=== PATIENT | male | born 1960 | race Caucasian/White ===

== ENCOUNTER 2020-08-03 09:49 | Outpatient (REF) | payer SELFPAY ==
[2020-08-03 10:29] LABS: Estimated Average Glucose 105 mg/dL; Hemoglobin A1c % 5.3 %
[2020-08-03 10:54] LABS: Alanine Aminotransferase 91 U/L (0-40); Albumin Level 4.2 g/dL (3.5-5.0); Alkaline Phosphatase 69 U/L (39-117); Anion Gap 10 (12-20); Aspartate Amino Transferase 54 U/L (5-37); Bilirubin Total 2.1 mg/dL (0.0-1.0); Blood Urea Nitrogen 20 mg/dL (9-16); Calcium 8.5 mg/dL (8.4-10.2); Carbon Dioxide 28 mmol/L (22-29); Chloride 108 mmol/L (96-108); Estimated Glomerular Filt Rate > 60; Glucose Fasting 102 mg/dL (60-99); HDL Cholesterol 33 mg/dL; Potassium 4.4 mmol/l (3.3-5.1); Sodium 142 mmol/L (135-145); Triglycerides 47 mg/dL
[2020-08-03 11:04] LABS: TSH reflex Free T4 2.24 mIU/mL (0.32-4.0)
[2020-08-03 11:24] LABS: Creatinine Urine 72.89 mg/dL; Microalbumin Urine < 5.0 mg/L
[2020-08-03 11:31] LABS: Cholesterol 79 mg/dL; LDL Cholesterol Calculated 37 mg/dl
== END 2020-08-03 09:50 | disposition home or self-care (01) ==
LOC: HO.LAB 09:49
PROVIDERS: PCP Physician Assistant; Visit Provider Physician Assistant
DX: I10 Essential (primary) hypertension (principal); E78.2 Mixed hyperlipidemia; E03.9 Hypothyroidism, unspecified; Z12.5 Encounter for screening for malignant neoplasm of prostate
CPT/HCPCS: 36415; 80053; 80061; 82043; 83036; 84153; 84443

== ENCOUNTER → 2020-08-19 12:14 | Outpatient (BNVA) | payer OTHER, SELFPAY | PROVIDERS: PCP Physician Assistant; Visit Provider Physician Assistant ==

== ENCOUNTER 2020-10-19 09:47 | Day surgery (SDC) | payer OTHER, SELFPAY ==
--- NOTE | 2020-10-18 11:01 | HO.ANESPROP2 ---
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 Mother No problems noted. Daughter Lupus Surgical History Surgical History Hx of colonoscopy No pertinent past surgical history Social History Social History Household Members: Spouse Alcohol intake: never Smoking Status: Never smoker Advance Directives: No Advance Directives Information Provided: No Advance Directives on File: No Current occupational status: employed Current occupation: [employer] Allergies Allergy/AdvReac Type Severity Reaction Status Date / Time No Known Allergies Allergy Verified 07/21/20 13:42 Home Medications Medication Instructions Recorded Confirmed Last Taken Type apixaban 5 mg tablet 5 mg PO BID 07/21/20 10/13/20 Unknown History Exam Exam Date and Time: October 18, 2020 1101 Pertinent Lab Results Pertinent Lab Results: Laboratory Tests 07/03/19 08/03/20 15:05 10:00 WBC 4.8 Hgb 15.7 Hct 45.7 Plt Count 178 Sodium 142 Potassium 4.4 Chloride 108 Carbon Dioxide 28 BUN 20 H Creatinine 1.12 Assessment and Plan Assessment Anesthesia Assessment: Chart Reviewed Documented by User: Lay Darby 10/19/20 10:45 [facility] Past Medical History Medical History Acquired hyperbilirubinemia Arthritis of knee H/O ischemic right MCA stroke Hand arthritis HTN (hypertension) Hyperlipidemia Hypothyroidism correction current use of anticoagulant Family History Family History Father No problems noted. Mother No problems noted. Daughter Lupus Surgical History Surgical History Hx of colonoscopy No pertinent past surgical history Social History Social History Household Members: Spouse Alcohol intake: never Smoking Status: Never smoker Advance Directives: No Advance Directives Information Provided: No Advance Directives on File: No Current occupational status: employed Current occupation: [employer] Meds Allergies Allergy/AdvReac Type Severity Reaction Status Date / Time No Known Allergies Allergy Verified 07/21/20 13:42 Home Medications Medication Instructions Recorded Confirmed Last Taken Type apixaban 5 mg tablet 5 mg PO BID 07/21/20 10/13/20 Unknown History Exam Airway Mallampati Class: II TM Dist: >3cm Neck ROM: Full Denture: Upper Loose/Missing/Broken Teeth: Yes Heart: RRR Lungs: CTA Assessment and Plan Assessment Anesthesia Assessment: Anesthesia Plan Discussed and Chart Reviewed Final Anesthetic Review NPO: Yes ASA Class: III Final Preanesthetic Review: Meds/Allgs Chart Reviewed, Consent Obtained/Reviewed and Anes Risks/Benef Reviewed Patient Risk: Intermediate Procedure Risk: Low Anesthetic Plan Anesthetic Plan: MAC: Disposition: Standard PACU
[2020-10-19 10:22] VITALS: BP 159/96; PULSE 71; RESP 16; TEMP 36.8; O2SAT 99
--- NOTE | 2020-10-19 10:27 | MHC.SHP ---
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) History of Previous Operations: Relevant previous surgery/procedure and date(s) (colonoscopy) Allergies: Allergies Allergy/AdvReac Type Severity Reaction Status Date / Time No Known Allergies Allergy Verified 07/21/20 13:42 Review of Systems Sugical H&P ROS: Negative: Constitution, Cardiovascular, Respiratory, Neurological, Psychiatric, Hem-Onc, Allergic/Immunologic, Gastrointestinal, Genitourinary, Musculoskeletal, Integumentary, Endocrine and Eyes/Ears/Nose/Throat Exam Surgical H&P Exam: Normal: HEENT, Normal: Heart, Normal: Lungs, Normal: Extremities, Normal: Abdomen, Normal: Skin and Normal: Neurological Plan Diagnosis/Plan: Unchanged I have reviewed the history and physical and performed a pertinent physical examination on my patient. No changes have occurred unless specified.
[2020-10-19 10:28] VITALS: BMI 26.4
[2020-10-19] MEDS: Lactated Ringers 1,000 ML 100 ML IVCONT (10:30)
--- NOTE | 2020-10-19 11:34 | P.OP_ITS ---
Operative Note Operative Note Date of Service: 10/19/20 Narrative: Operative Information Procedure Description: Colonoscopy COLONOSCOPY Instrument: Olympus variable stiffness pediatric scope 190L Colonoscopy Monitoring: Vital signs and clinical assessment, continuous EKG monitoring, Pulse oximetry, Carbon Dioxide monitoring and blood pressure monitoring were done throughout the procedure. Colon withdrawal time was 11 minutes. Procedure: The patient was placed in the left lateral decubitis position and pre-procedure medications were administered. After a digital rectal examination of the ano-rectum, the video colonoscope was inserted into the rectum and advanced through the colon to the cecum/TI. The colonoscope was slowly withdrawn in a retrograde panoramic fashion and the colon mucosa was carefully examined including a retroflexed view of the rectum. Findings and interventions are described below. Procedure Difficulty:moderate due to looping, pressure applied to reach cecum Findings: Terminal Ileum-normal Cecum:normal Ascending Colon: normal Transverse Colon -normal Descending Colon:normal Sigmoid Colon: normal Rectum: Retroflexion with small internal hemorrhoids, grade I Anorectum - normal Colon preparation: [place] Bowel Preparation Scale Right colon; 2 Transverse colon: 2 Left colon; 1 (0 = Unprepared colon segment with mucosa not seen due to solid stool that cannot be cleared. 1 = Portion of mucosa of the colon segment seen, but other areas of the colon segment not well seen due to staining, residual stool and/or opaque liquid. 2 = Minor amount of residual staining, small fragments of stool and/or opaque liquid, but mucosa of colon segment seen well. 3 = Entire mucosa of colon segment seen well with no residual staining, small fragments of stool or opaque liquid) Impression and Post Procedure Diagnosis: internal hemorrhoids Plan: High fiber diet leaflet Avoid straining at stool, epsom salts and sitz bath, anusol supps or cream as needed Repeat Colonoscopy in 5 years due to fair prep or earlier if clinically indicated Above findings were reviewed with the patient and relevant handouts were provided if indicated.
--- NOTE | 2020-10-19 11:34 | PM.OP ---
Brief Operative Note Date of Service: 10/19/20 Pre-op diagnosis: colon screening Post-op diagnosis: same Procedure: see op note Surgeon: Susan Chamorro MD Anesthesia: MAC Estimated blood loss (mL): 0 Condition: stable Disposition: PACU
[2020-10-19 12:15] VITALS: BP 122/73; PULSE 70; RESP 18; TEMP 36.4; O2SAT 99
[2020-10-19 12:30] VITALS: BP 123/76; PULSE 90; RESP 20; TEMP 36.4; O2SAT 99
== END 2020-10-19 13:07 | disposition home or self-care (01) ==
PROVIDERS: PCP Physician Assistant; Visit Provider Internal Medicine Gastroenterology
PROC: 0DJD8ZZ Inspection of Lower Intestinal Tract, Via Natural or Artificial Opening Endoscopic (ICD-10-PCS; CPT 45378; principal; 2020-10-19 11:00)
DX: Z12.11 Encounter for screening for malignant neoplasm of colon (principal); K64.0 First degree hemorrhoids; I10 Essential (primary) hypertension; Z86.73 Personal history of transient ischemic attack (TIA), and cerebral infarction without residual deficits; E80.6 Other disorders of bilirubin metabolism; Z79.01 Long term (current) use of anticoagulants; Z79.82 Long term (current) use of aspirin; Z79.899 Other long term (current) drug therapy
CPT/HCPCS: 45378

== ENCOUNTER 2021-07-20 10:32 | Outpatient (REF) | payer SELFPAY ==
[2021-07-20 10:59] LABS: Hematocrit 43.2 % (42.0-52.0); Hemoglobin 14.7 g/dl (14.0-18.0); Mean Corpuscular Hemoglobin 30.6 pg (27.0-33.0); Mean Corpuscular Volume 89.8 fL (80.0-98.0); Mean Platelet Volume 9.5 fL (9.4-12.4); Platelet Count 180 X10*3/uL (160-400); Red Blood Count 4.81 X10*6/uL (4.60-5.80); Red Cell Distribution Width 12.6 % (11.0-16.0); White Blood Count 5.8 X10*3/uL (4.8-10.8)
[2021-07-20 11:22] LABS: Alanine Aminotransferase 29 U/L (0-40); Albumin Level 3.9 g/dL (3.5-5.0); Alkaline Phosphatase 62 U/L (39-117); Anion Gap 12 (12-20); Aspartate Amino Transferase 23 U/L (5-37); Bilirubin Total 1.7 mg/dL (0.0-1.0); Blood Urea Nitrogen 14 mg/dL (9-16); Calcium 9.4 mg/dL (8.4-10.2); Carbon Dioxide 26 mmol/L (22-29); Chloride 107 mmol/L (96-108); Cholesterol 148 mg/dL; Estimated Glomerular Filt Rate > 60; Glucose Fasting 98 mg/dL (60-99); HDL Cholesterol 38 mg/dL; LDL Cholesterol Calculated 95 mg/dl; Potassium 4.7 mmol/L (3.3-5.1); Sodium 140 mmol/L (135-145); Triglycerides 77 mg/dL
[2021-07-20 11:34] LABS: Estimated Average Glucose 105 mg/dL; Hemoglobin A1c % 5.3 %
[2021-07-20 11:43] LABS: Prostate Specific Antigen Scr 0.43 ng/mL (<0.05-4.0); TSH reflex Free T4 2.25 uIU/mL (0.32-4.0)
[2021-07-20 12:32] LABS: Creatinine Urine 101.56 mg/dL; Microalbumin Urine < 5.0 mg/L
== END 2021-07-20 10:33 | disposition home or self-care (01) ==
LOC: HO.LAB 10:32
PROVIDERS: PCP Physician Assistant; Visit Provider Physician Assistant
DX: Z12.5 Encounter for screening for malignant neoplasm of prostate (principal); E03.9 Hypothyroidism, unspecified; I10 Essential (primary) hypertension
CPT/HCPCS: 36415; 80053; 80061; 82043; 83036; 84153; 84443; 85027

== ENCOUNTER 2022-07-12 11:12 | Outpatient (REF) | payer OTHER, SELFPAY ==
[2022-07-12 12:26] LABS: Hematocrit 43.9 % (42.0-52.0); Hemoglobin 14.8 g/dl (14.0-18.0); Mean Corpuscular HGB Conc 33.7 g/dl (31.0-36.0); Mean Corpuscular Hemoglobin 29.5 pg (27.0-33.0); Mean Corpuscular Volume 87.6 fL (80.0-98.0); Mean Platelet Volume 9.8 fL (9.4-12.4); Platelet Count 205 X10*3/uL (160-400); Red Blood Count 5.01 X10*6/uL (4.60-5.80); Red Cell Distribution Width 12.8 % (11.0-16.0); White Blood Count 6.8 X10*3/uL (4.8-10.8)
[2022-07-12 13:16] LABS: Creatinine Urine 103.15 mg/dL; Microalbum/Creatinine Ratio Ur 6.7 ug/mg cr
[2022-07-12 15:45] LABS: Alanine Aminotransferase 36 U/L (0-40); Albumin Level 4.2 g/dL (3.5-5.0); Alkaline Phosphatase 87 U/L (39-117); Anion Gap 14 (12-20); Aspartate Amino Transferase 33 U/L (5-37); Bilirubin Total 2.7 mg/dL (0.0-1.0); Blood Urea Nitrogen 20 mg/dL (9-16); Calcium 9.2 mg/dL (8.4-10.2); Carbon Dioxide 27 mmol/L (22-29); Chloride 108 mmol/L (96-108); Cholesterol 88 mg/dL; Estimated Glomerular Filt Rate > 60; Glucose Fasting 90 mg/dL (60-99); HDL Cholesterol 33 mg/dL; LDL Cholesterol Calculated 45 mg/dl; Prostate Specific Antigen Scr 0.98 ng/mL (<0.05-4.0); Sodium 144 mmol/L (135-145); TSH reflex Free T4 2.81 uIU/mL (0.32-4.0); Total Protein 7.6 g/dL (6.5-8.0); Triglycerides 54 mg/dL
== END 2022-07-12 11:13 | disposition home or self-care (01) ==
LOC: HO.LAB 11:12
PROVIDERS: PCP Physician Assistant; Visit Provider Physician Assistant
DX: Z12.5 Encounter for screening for malignant neoplasm of prostate (principal); E03.9 Hypothyroidism, unspecified; I10 Essential (primary) hypertension; E78.2 Mixed hyperlipidemia
CPT/HCPCS: 36415; 80053; 80061; 82043; 84153; 84443; 85027

== ENCOUNTER 2023-03-07 11:11 | Outpatient (AMB) | payer OTHER, SELFPAY ==
[2023-03-07 11:17] VITALS: BP 138/80; PULSE 82; O2SAT 97; BMI 29.4
--- NOTE | 2023-03-07 11:17 | MHC.PC.OV ---
Vital Signs 03/07/23 11:17 Height 5 ft 8 in Weight 193 lb 8 oz BMI 29.4 BP 138/80 Blood Pressure Location Lt brachial Position Sitting Pulse 82 Pulse Source Pulse Oximeter Pulse Oximetry (%) 97 Oxygen Delivery Method Room Air Intake Visit Reasons: f/u HTN/ CVA Intake Note: Pt is here for HTN and CVA F/U. Product Development Carpenter Required: Yes Product Development Carpenter Language: Tongan Accompanied by: Self / Same As Patient Allergies No Known Allergies Allergy (Verified 03/07/23 11:29) Medication List - Last Reconciled 03/07/23 by Ruiz Smiley PA-C apixaban (Eliquis) 5 mg PO BID aspirin 81 mg PO DAILY 90 days atorvastatin 80 mg PO DAILY 90 days levothyroxine 75 mcg PO DAILY lisinopril 10 mg PO DAILY Tobacco use date assessed: 03/07/23 Fall risk assessment: No Falls in past year Last assessed Fall Risk: 03/07/23 Dental Screening Dental Screen Date: 03/07/23 Did you have a dental visit in the last 12 months?: Yes Did you have a dental problem in the last 6 months where you did not have access to dental care?: No Was dental information given to patient?: Patient has dentist HPI f/u HTN/ CVA HPI Details Zander is a 62 y/o M here today for a follow-up visit.? 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 hypothyroidism. ?? ? CVA:? Pt seen Neurology in the past and started on lisinopril 10mg for blood pressure control.? He has no secondary neural deficits resulting from a stroke.? He continues on lifelong high-dose statin and baby aspirin. Also continues on anticoagulation (Eliquis 5 mg b.i.d.) and denies any overt signs of bleeding. .. HTN: Does not check BP at home.? Today's blood pressure in office acceptable.? Otherwise denies any palpitations, chest discomfort or shortness of breath. .. Hypothyroidism:? He has stopped using levothyroxine for some unknown reason. Has noted a 10 lb weight gain over the last 6 months. Patient willing to restart levothyroxine. ? Will recheck TSH and if elevated will restart levothyroxine dose. 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 Mother No problems noted. 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 1. Little interest or pleasure in doing things: not at all 2. Feeling down, depressed, or hopeless: not at all 3. Trouble falling or staying asleep, or sleeping too much: not at all 4. Feeling tired or having little energy: not at all 5. Poor appetite or overeating: not at all 6. Feeling bad about yourself - or that you are a failure or have let yourself or your family down: not at all 7. Trouble concentrating on things, such as reading the newspaper or watching television: not at all 8. Moving or speaking so slowly that other people could have noticed. Or the opposite - being so fidgety or restless that you have been moving around a lot more than usual: not at all 9. Thoughts that you would be better off or of hurting yourself in some way: not at all Total score: 0 Depression Screening Interpretation: Negative 22113 - PHQ-9 Billing: Yes Source: Developed by Drs. Naif Loyd, Kristen Rob, Almas Roberto and colleagues, with an educational suzy from [employer]. Thrive Questionnaire Date Thrive assessed: 01/18/22 I am a: Patient What is your living situation today?: I have a steady place to live Within the past 12 months, did the food you bought not last and you didn't have the money to get more?: Never true Within the past 12 months, did you worry whether your food would run out before you got money to buy more?: Never true Do you have trouble paying for medicines?: No Do you have trouble getting transportation to medical appointments?: No Do you have trouble paying your heating and electricity bill?: No Do you have trouble taking care of your child, family member or friend?: No Do you have trouble with day-to-day activities such as bathing, preparing meals, shopping, managing finances, etc.?: No Are you currently unemployed and looking for a job?: No Are you interested in more education?: No Currently or been in a relationship where the following occur: no concerns reported AUDIT C Alcohol Use Questionnaire (AUDIT-C) 1. How often do you have a drink containing alcohol?: Monthly or less 2. How many drinks containing alcohol do you have on a typical day when you are drinking?: 1 or 2 3. How often do you have six or more drinks on one occasion?: Never Total Score: 1 DAVID-7 AMB Questionnaire DAVID-7 Date DAVID - 7 assessed: 03/07/23 Feeling nervous, anxious, or on edge: 0 = Not at all Not being able to stop or control worryin = Not at all Worrying too much about different things: 0 = Not at all Trouble relaxin = Not at all Being so restless that it is hard to sit still: 0 = Not at all Becoming easily annoyed or irritable: 0 = Not at all Feeling afraid as if something awful might happen: 0 = Not at all Total DAVID-7 score (0-4 normal; 5-9 mild; 10-14 moderate; 15-21 severe): 0 Source: Developed by Drs. Naif Loyd, Kristen Rob, Almas Roberto and colleagues, with an educational suzy from [employer] DAVID-7 Assessment Billing DAVID-7 Assessment Tool: DAVID-7 Assessment 19839 Review of Systems Const Denies headache(s) Eyes Denies loss of vision ENT Denies vertigo, Denies dizziness, Denies headache(s) and Denies sore throat Card Denies chest pain, Denies leg edema and Denies lightheadedness Resp Denies cough, Denies hemoptysis and Denies wheezing GI Denies abdominal pain, Denies melena, Denies constipation, Denies diarrhea and Denies vomiting Denies dysuria, Denies urinary frequency and Denies urinary urgency Musc Denies arthralgias, Denies joint swelling, Denies numbness and Denies tingling Neuro Denies Abnormal speech present, Denies behavioral changes, Denies vertigo, Denies dizziness, Denies headache(s), Denies loss of vision, Denies memory loss, Denies numbness and Denies tingling Psych Denies anxiety, Denies behavioral changes, Denies depression, Denies memory loss and Denies panic attacks Lazaro/Lymph Denies easy bleeding and Denies easy bruising Aller/Immun Denies wheezing Physical exam (Primary Care) Vital Signs: Last Vital Signs Pulse 82 03/07/23 11:17 BP 138/80 03/07/23 11:17 Pulse Ox 97 03/07/23 11:17 Oxygen Delivery Method Room Air 03/07/23 11:17 BMI result Body Mass Index 29.4 Tobacco/Smoking Status: Tobacco use Status Tobacco use date assessed 03/07/23 03/07/23 11:25 Patient Tobacco Use Status Never used Tobacco 03/07/23 11:24 Tobacco use type Cigarette 03/07/23 11:24 e-Cigarette/Vaping Use Never Used 03/07/23 11:24 PHQ-9: PHQ-9 Score PHQ-9: Total score 0 03/07/23 11:25 Depression Screening Interpretation: Negative Thrive Assessment: Date of Thrive Assessment Date Thrive assessed 01/18/22 03/07/23 11:24 Currently or been in a relationship where the following occur: no concerns reported Const General: healthy appearing, no acute distress, alert and awake Nutritional Appearance: well nourished Orientation/consciousness: oriented to person, oriented to place and oriented to time HENMT Ears: TM's normal bilaterally General nose exam: Normal nasal mucous membranes and turbinates present Eyes Conjunctivae: conjunctivae normal Sclerae: sclerae normal Pupils: Equal, round and reactive pupils present Neck Neck: Yes no lymphadenopathy and Yes no JVD Thyroid: Thyroid normal Carotids: no bruits Resp Effort & Inspection: normal respiratory effort and not tachypneic Auscultation: no crackles, no rales, no rhonchi and no wheezes Cardio Rate: regular rate Rhythm: regular rhythm Heart sounds: no murmurs and normal S1 and S2 GI Palpation (GI): Soft to palpation, nontender, no hepatomegaly and no splenomegaly Auscultation: normal bowel sounds Skin General skin exam: no rashes or lesions noted and dry skin Neuro General: oriented to person, oriented to place and oriented to time Cranial nerves: Yes Equal, round and reactive pupils present Speech: No Abnormal speech present Gait exam (Neuro): Normal gait present Motor exam (neuro): no tremor noted Extrem Right upper extremity: full ROM Left upper extremity: full ROM Right lower extremity: full ROM; no edema Left lower extremity: full ROM; no edema Psych Mental Status: mental status grossly normal Speech and movement: Normal speech and movement present Affect: normal affect Attitude: cooperative Thought process: Normal thought process present Assessment and Plan Assessment & Plan (1) HTN (hypertension): Code(s): I10 - Essential (primary) hypertension Qualifiers: Hypertension type: essential hypertension Qualified Code(s): I10 - Essential (primary) hypertension Plan: Patient's blood pressure acceptable today in office. Will continue his current dose of antihypertensive medication with goal blood pressure be below 140/90 (2) HLD (hyperlipidemia): Code(s): E78.5 - Hyperlipidemia, unspecified Qualifiers: Hyperlipidemia type: mixed hyperlipidemia Qualified Code(s): E78.2 - Mixed hyperlipidemia Plan: Patient continues on high-dose statin therapy. Goal LDL to remain below 70 (3) Hypothyroidism: Code(s): E03.9 - Hypothyroidism, unspecified Qualifiers: Hypothyroidism type: unspecified Qualified Code(s): E03.9 - Hypothyroidism, unspecified Plan: Noted 10 lb weight gain since last office visit. Has stopped using levothyroxine for some unclear reason. Advised to restart levothyroxine to noted weight gain and elevations in blood pressure. Will follow TSH to assure normal. (4) H/O ischemic right MCA stroke: Comment: 03/2019 Code(s): Z86.73 - Personal history of transient ischemic attack (TIA), and cerebral infarction without residual deficits Plan: Patient is status post MCA stroke in 2019. Has no further neurological deficits. Continues on Eliquis b.i.d. without any overt signs of bleeding. Will continue to manage risk factors for recurrent stroke. Orders: Orders Comprehensive Malo. Panel Fast Today I10 - Essential (primary) hypertension Lipid Panel Today E78.2 - Mixed hyperlipidemia Prostate Specific Antigen Scr Today I10 - Essential (primary) hypertension, Z12.5 - Encounter for screening for malignant neoplasm of prostate TSH reflex Free T4 Today E03.9 - Hypothyroidism, unspecified Microalbumin, Random (w Creat) Today I10 - Essential (primary) hypertension Complete Blood Count no Diff Today I10 - Essential (primary) hypertension Medications: Changed From levothyroxine 75 mcg PO DAILY E03.9 - Hypothyroidism, unspecified To levothyroxine 75 mcg PO DAILY 90 days 90 tabs 1RF E03.9 - Hypothyroidism, unspecified Refilled aspirin 81 mg PO DAILY 90 days 90 tabs 2RF I10 - Essential (primary) hypertension Coding Level of Care Code Est Pt Level 4 (65483) Diagnoses HTN (hypertension) I10 Hypertension type: essential hypertension HLD (hyperlipidemia) E78.2 Hyperlipidemia type: mixed hyperlipidemia Hypothyroidism E03.9 Hypothyroidism type: unspecified H/O ischemic right MCA stroke Z86.73 Additional Codes DAVID-7 Assessment Billing - DAVID-7 Assessment Tool: DAVID-7 Assessment 77767 ([id number])
== END 2023-03-07 11:38 | disposition home or self-care (01) ==
PROVIDERS: PCP Physician Assistant; Visit Provider Physician Assistant
DX: I10 Essential (primary) hypertension (principal); E78.2 Mixed hyperlipidemia; E03.9 Hypothyroidism, unspecified; Z86.73 Personal history of transient ischemic attack (TIA), and cerebral infarction without residual deficits
CPT/HCPCS: 99214

== ENCOUNTER 2023-04-11 07:44 | Outpatient (REF) | payer OTHER, SELFPAY ==
[2023-04-11 08:17] LABS: Hematocrit 43.2 % (42.0-52.0); Hemoglobin 14.8 g/dl (14.0-18.0); Mean Corpuscular HGB Conc 34.3 g/dl (31.0-36.0); Mean Corpuscular Hemoglobin 30.4 pg (27.0-33.0); Mean Corpuscular Volume 88.7 fL (80.0-98.0); Mean Platelet Volume 9.4 fL (9.4-12.4); Platelet Count 185 X10*3/uL (160-400); Red Blood Count 4.87 X10*6/uL (4.60-5.80); Red Cell Distribution Width 12.6 % (11.0-16.0); White Blood Count 5.6 X10*3/uL (4.8-10.8)
[2023-04-11 08:38] LABS: Creatinine Urine 113.43 mg/dL; Microalbumin Urine < 5.0 mg/L
[2023-04-11 08:44] LABS: Alanine Aminotransferase 46 U/L (0-40); Albumin Level 4.1 g/dL (3.5-5.0); Alkaline Phosphatase 96 U/L (39-117); Anion Gap 11 (12-20); Aspartate Amino Transferase 37 U/L (5-37); Bilirubin Total 1.4 mg/dL (0.0-1.0); Blood Urea Nitrogen 14 mg/dL (9-16); Calcium 9.1 mg/dL (8.4-10.2); Carbon Dioxide 27 mmol/L (22-29); Chloride 107 mmol/L (96-108); Cholesterol 97 mg/dL (<200); Estimated Glomerular Filt Rate > 60; Glucose Fasting 117 mg/dL (60-99); HDL Cholesterol 35 mg/dL (>40); LDL Cholesterol Calculated 48 mg/dL (<100); Potassium 4.5 mmol/L (3.3-5.1); Sodium 140 mmol/L (135-145); Total Protein 7.7 g/dL (6.5-8.0); Triglycerides 72 mg/dL (<150)
[2023-04-11 09:01] LABS: Prostate Specific Antigen Scr 0.35 ng/mL (<0.05-4.0); TSH reflex Free T4 2.71 uIU/mL (0.32-4.0)
== END 2023-04-11 07:45 | disposition home or self-care (01) ==
LOC: HO.LAB 07:44
PROVIDERS: PCP Physician Assistant; Visit Provider Physician Assistant
DX: Z12.5 Encounter for screening for malignant neoplasm of prostate (principal); E03.9 Hypothyroidism, unspecified; I10 Essential (primary) hypertension; E78.2 Mixed hyperlipidemia
CPT/HCPCS: 36415; 80053; 80061; 82570; 84153; 84443; 85027

== ENCOUNTER 2023-05-31 13:11 | Outpatient (AMB) | payer OTHER, SELFPAY ==
[2023-05-31 13:16] VITALS: BP 122/78; PULSE 88; O2SAT 96; BMI 29.4
--- NOTE | 2023-05-31 13:16 | A.OFFPC_ITS ---
Vital Signs 3 05/31/23 13:16 Height 5 ft 8 in Weight 193 lb 8 oz BMI 29.4 BP 122/78 Blood Pressure Location Lt brachial Position Sitting Pulse 88 Pulse Source Pulse Oximeter Pulse Oximetry (%) 96 Oxygen Delivery Method Room Air Intake Visit Reasons: [facility] 05/21 stroke symptoms Snuff Box Finisher Required: Yes Snuff Box Finisher Language: Urdu Accompanied by: Self / Same As Patient Allergies No Known Allergies Allergy (Verified 05/31/23 13:29) Medication List - Last Reconciled 05/31/23 by Ruiz Smiley PA-C apixaban (Eliquis) 5 mg PO BID aspirin 81 mg PO DAILY 90 days atorvastatin 80 mg PO DAILY 90 days levothyroxine 75 mcg PO DAILY 90 days lisinopril 10 mg PO DAILY Tobacco use date assessed: 03/07/23 Fall risk assessment: No Falls in past year Last assessed Fall Risk: 05/31/23 Dental Screening Dental Screen Date: 05/31/23 Did you have a dental visit in the last 12 months?: Yes Did you have a dental problem in the last 6 months where you did not have access to dental care?: No Was dental information given to patient?: Patient has dentist HPI [facility] 05/21 stroke symptoms 2 HPI0 Details Patient is a 62-year-old male here today for a hospital discharge follow-up. Patient was seen at [facility] for acute left eye ptosis. Patient does have history of stroke and thus workup for stroke was done while in the ER. CT angiogram showed known right MCA stenosis and an MRI of brain showing no evidence of acute ischemic stroke. Of note did have a previous stroke in the MCA region. Otherwise patient did not have any other neurological symptoms. 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 Mother No problems noted. 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 Naif Loyd, Kristen Rob, Almas Roberto and colleagues, with an educational suzy from [employer]. Review of Systems Const Denies headache(s) Eyes Denies loss of vision ENT Denies vertigo, Denies dizziness, Denies headache(s) and Denies sore throat Card Denies chest pain, Denies leg edema and Denies lightheadedness Resp Denies cough, Denies hemoptysis and Denies wheezing GI Denies abdominal pain, Denies melena, Denies constipation, Denies diarrhea and Denies vomiting Denies dysuria, Denies urinary frequency and Denies urinary urgency Musc Denies arthralgias, Denies joint swelling, Denies numbness and Denies tingling Neuro Denies Abnormal speech present, Denies behavioral changes, Denies vertigo, Denies dizziness, Denies headache(s), Denies loss of vision, Denies memory loss, Denies numbness and Denies tingling Psych Denies anxiety, Denies behavioral changes, Denies depression, Denies memory loss and Denies panic attacks Lazaro/Lymph Denies easy bleeding and Denies easy bruising Aller/Immun Denies wheezing Physical exam (Primary Care) Vital Signs: Last Vital Signs Pulse 88 05/31/23 13:16 BP 122/78 05/31/23 13:16 Pulse Ox 96 05/31/23 13:16 Oxygen Delivery Method Room Air 05/31/23 13:16 BMI result Body Mass Index 29.4 Tobacco/Smoking Status: Tobacco use Status Tobacco use date assessed 03/07/23 05/31/23 13:19 Patient Tobacco Use Status Never used Tobacco 05/31/23 13:19 Tobacco use type Cigarette 05/31/23 13:19 e-Cigarette/Vaping Use Never Used 05/31/23 13:19 Thrive Assessment: Date of Thrive Assessment Date Thrive assessed 01/18/22 05/31/23 13:19 Const General: healthy appearing, no acute distress, alert and awake Nutritional Appearance: well nourished Orientation/consciousness: oriented to person, oriented to place and oriented to time HENMT Ears: TM's normal bilaterally General nose exam: Normal nasal mucous membranes and turbinates present Eyes Conjunctivae: conjunctivae normal Sclerae: sclerae normal Pupils: Equal, round and reactive pupils present Eyes/upper lids images: 2 1. LEFT EYELID DIFFICULTY WITH RAISING AND KEEPING OPEN. Neck Neck: Yes no lymphadenopathy and Yes no JVD Thyroid: Thyroid normal Carotids: no bruits Resp Effort & Inspection: normal respiratory effort and not tachypneic Auscultation: no crackles, no rales, no rhonchi and no wheezes Cardio Rate: regular rate Rhythm: regular rhythm Heart sounds: no murmurs and normal S1 and S2 GI Palpation (GI): Soft to palpation, nontender, no hepatomegaly and no splenomegaly Auscultation: normal bowel sounds Skin General skin exam: no rashes or lesions noted and dry skin Neuro General: oriented to person, oriented to place and oriented to time Cranial nerves: Yes Equal, round and reactive pupils present Speech: No Abnormal speech present Gait exam (Neuro): Normal gait present Motor exam (neuro): no tremor noted Extrem Right upper extremity: full ROM Left upper extremity: full ROM Right lower extremity: full ROM; no edema Left lower extremity: full ROM; no edema Psych Mental Status: mental status grossly normal Speech and movement: Normal speech and movement present Affect: normal affect Attitude: cooperative Thought process: Normal thought process present Assessment and Plan Assessment & Plan (1) Ptosis, left eyelid: Code(s): H02.402 - Unspecified ptosis of left eyelid Plan: Unclear etiology to patient's Pitocin at this time. Patient does have history of CVA though workup was negative for acute CVA on MRI of brain. Patient does report some vision issue out of the left eye which is a chronic finding. Does have some evidence of cataract and would like to see Ophthalmology for removal. Will test for an affectionate etiology ? Pisano's palsy Concerns here for ocular myasthenia gravis thus will refer to Neurology for evaluation and possible treatment. (2) Cataract, left eye: Code(s): H26.9 - Unspecified cataract Qualifiers: Cataract type: age-related Age-related cataract type: other Qualified Code(s): H25.89 - Other age-related cataract (3) HTN (hypertension): Code(s): I10 - Essential (primary) hypertension Qualifiers: Hypertension type: essential hypertension Qualified Code(s): I10 - Essential (primary) hypertension Plan: Patient's blood pressure acceptable today in office. Will continue his current dose of antihypertensive medication with goal blood pressure be below 140/90 (4) HLD (hyperlipidemia): Code(s): E78.5 - Hyperlipidemia, unspecified Qualifiers: Hyperlipidemia type: mixed hyperlipidemia Qualified Code(s): E78.2 - Mixed hyperlipidemia Plan: Patient continues on high-dose statin therapy. Goal LDL to remain below 70 (5) H/O ischemic right MCA stroke: Comment: 03/2019 Code(s): Z86.73 - Personal history of transient ischemic attack (TIA), and cerebral infarction without residual deficits Plan: Patient is status post MCA stroke in 2019. Has no further neurological deficits. Continues on Eliquis b.i.d. without any overt signs of bleeding. Will continue to manage risk factors for recurrent stroke. Orders: Orders 2 Lyme IgG/IgM w/reflex to WB Today H02.402 - Unspecified ptosis of left eyelid Herpes Simplex Virus Ab IgG Today H02.402 - Unspecified ptosis of left eyelid Referrals 2 Neurology Referral H02.402 - Unspecified ptosis of left eyelid Ophthalmology Referral H25.89 - Other age-related cataract Coding Level of Care Code Est Pt Level 4 (06212) Diagnoses Ptosis, left eyelid H02.402 Other age-related cataract of left eye H25.89 Cataract type: age-related Age-related cataract type: other Essential hypertension I10 Hypertension type: essential hypertension Mixed hyperlipidemia E78.2 Hyperlipidemia type: mixed hyperlipidemia H/O ischemic right MCA stroke Z86.73
== END 2023-05-31 13:47 | disposition home or self-care (01) ==
PROVIDERS: PCP Physician Assistant; Visit Provider Physician Assistant
DX: H02.402 Unspecified ptosis of left eyelid (principal); H25.89 Other age-related cataract; I10 Essential (primary) hypertension; E78.2 Mixed hyperlipidemia; Z86.73 Personal history of transient ischemic attack (TIA), and cerebral infarction without residual deficits
CPT/HCPCS: 99214

== ENCOUNTER 2023-06-01 14:41 | Outpatient (REF) | payer OTHER, SELFPAY ==
[2023-06-05 00:48] LABS: Lyme Blot 1.64 index
[2023-06-05 09:28] LABS: Lyme Abs Screen POSITIVE
[2023-06-05 14:53] LABS: 18 KD (IgG) Band NON-REACTIVE; 23 KD (IgG) Band NON-REACTIVE; 23 KD (IgM) Band NON-REACTIVE; 28 KD (IgG) Band NON-REACTIVE; 30 KD (IgG) Band NON-REACTIVE; 39 KD (IgM) Band NON-REACTIVE; 39KD (IgG) Band NON-REACTIVE; 41 KD (IgM) Band NON-REACTIVE; 41KD (IgG) Band NON-REACTIVE; 45 KD (IgG) Band NON-REACTIVE; 58 KD (IgG) Band REACTIVE; 66 KD (IgG) Band NON-REACTIVE; 93 KD (IgG) Band REACTIVE; Lyme IgG Blot Interp NEGATIVE (NEGATIVE); Lyme IgM Blot Interp NEGATIVE (NEGATIVE)
== END 2023-06-01 14:42 | disposition home or self-care (01) ==
LOC: HO.LAB 14:41
PROVIDERS: PCP Physician Assistant; Visit Provider Physician Assistant
DX: H02.402 Unspecified ptosis of left eyelid (principal)
CPT/HCPCS: 36415; 86617; 86618; 86695; 86696

== ENCOUNTER 2023-07-19 15:37 | Outpatient (AMB) | payer OTHER, SELFPAY ==
[2023-07-19 16:01] VITALS: BP 118/70; PULSE 58; O2SAT 96; BMI 26.6
--- NOTE | 2023-07-19 16:01 | MHC.PC.OV ---
Vital Signs 07/19/23 16:01 Height 5 ft 8 in Weight 175 lb BMI 26.6 BP 118/70 Blood Pressure Location Lt brachial Position Sitting Pulse 58 Pulse Source Pulse Oximeter Pulse Oximetry (%) 96 Oxygen Delivery Method Room Air Intake Visit Reasons: ED [facility] unsteady balance/collapsed lids Political Organizer Required: Yes Political Organizer Language: Slovak Master Automotive Glass Technician: Present Accompanied by: Friend Allergies No Known Allergies Allergy (Verified 07/19/23 16:15) Medication List - Last Reconciled 07/19/23 by Ruiz Smiley PA-C apixaban (Eliquis) 5 mg PO BID aspirin 81 mg PO DAILY 90 days atorvastatin 80 mg PO DAILY 90 days levothyroxine 75 mcg PO DAILY 90 days lisinopril 10 mg PO DAILY pyridostigmine bromide 60 mg PO QID Tobacco use date assessed: 03/07/23 Fall risk assessment: No Falls in past year Last assessed Fall Risk: 07/19/23 Dental Screening Dental Screen Date: 07/19/23 Did you have a dental visit in the last 12 months?: Yes Did you have a dental problem in the last 6 months where you did not have access to dental care?: No Was dental information given to patient?: Patient has dentist HPI ED [facility] unsteady balance/collapsed lids HPI Details Patient is a 62-year-old Slovak-speaking male here today for a hospital discharge follow-up. Patient has a past medical history significant for hyperlipidemia, hypertension, hypothyroidism and a CVA. Use recently evaluated for right-sided eye ptosis. He was later seen here the PCP office and we tested for HSV and Lyme which was positive. He later returned to [facility] due to worsening eye is in generalized weakness. Repeat Lyme testing was negative at [facility]. Intracranial imaging without any acute CVA. Working diagnosis at this time is myasthenia gravis and was evaluated by Neurology was started on medication.. Has follow-up with Neurology and few weeks. 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 Mother No problems noted. 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 Naif Loyd, Kristen Rbo, Almas Roberto and colleagues, with an educational suzy from [employer] Review of Systems Const Denies headache(s) Eyes Denies loss of vision ENT Denies vertigo, Denies dizziness, Denies headache(s) and Denies sore throat Card Denies chest pain, Denies leg edema and Denies lightheadedness Resp Denies cough, Denies hemoptysis and Denies wheezing GI Denies abdominal pain, Denies melena, Denies constipation, Denies diarrhea and Denies vomiting Denies dysuria, Denies urinary frequency and Denies urinary urgency Musc Denies arthralgias, Denies joint swelling, Denies numbness and Denies tingling Neuro Denies Abnormal speech present, Denies behavioral changes, Denies vertigo, Denies dizziness, Denies headache(s), Denies loss of vision, Denies memory loss, Denies numbness and Denies tingling Psych Denies anxiety, Denies behavioral changes, Denies depression, Denies memory loss and Denies panic attacks Lazaro/Lymph Denies easy bleeding and Denies easy bruising Aller/Immun Denies wheezing Physical exam (Primary Care) Vital Signs: Last Vital Signs Pulse 58 07/19/23 16:01 BP 118/70 07/19/23 16:01 Pulse Ox 96 07/19/23 16:01 Oxygen Delivery Method Room Air 07/19/23 16:01 BMI result Body Mass Index 26.6 Tobacco/Smoking Status: Tobacco use Status Tobacco use date assessed 03/07/23 07/19/23 16:01 Patient Tobacco Use Status Never used Tobacco 07/19/23 16:01 Tobacco use type Cigarette 07/19/23 16:01 e-Cigarette/Vaping Use Never Used 07/19/23 16:01 Thrive Assessment: Date of Thrive Assessment Date Thrive assessed 01/18/22 07/19/23 16:01 Const General: healthy appearing, no acute distress, alert and awake Nutritional Appearance: well nourished Orientation/consciousness: oriented to person, oriented to place and oriented to time HENMT Ears: TM's normal bilaterally General nose exam: Normal nasal mucous membranes and turbinates present Eyes Other: BILATERAL EYELIDS HAVING DIFFICULTY REMAINING OPEN VOLUNTARILY. Conjunctivae: conjunctivae normal Sclerae: sclerae normal Pupils: Equal, round and reactive pupils present Neck Neck: Yes no lymphadenopathy and Yes no JVD Thyroid: Thyroid normal Carotids: no bruits Resp Effort & Inspection: normal respiratory effort and not tachypneic Auscultation: no crackles, no rales, no rhonchi and no wheezes Cardio Rate: regular rate Rhythm: regular rhythm Heart sounds: no murmurs and normal S1 and S2 GI Palpation (GI): Soft to palpation, nontender, no hepatomegaly and no splenomegaly Auscultation: normal bowel sounds Skin General skin exam: no rashes or lesions noted and dry skin Neuro General: oriented to person, oriented to place and oriented to time Cranial nerves: Yes Equal, round and reactive pupils present Speech: No Abnormal speech present Gait exam (Neuro): Normal gait present Motor exam (neuro): no tremor noted Extrem Right upper extremity: full ROM Left upper extremity: full ROM Right lower extremity: full ROM; no edema Left lower extremity: full ROM; no edema Psych Mental Status: mental status grossly normal Speech and movement: Normal speech and movement present Affect: normal affect Attitude: cooperative Thought process: Normal thought process present Assessment and Plan Assessment & Plan (1) Ptosis, left eyelid: Code(s): H02.402 - Unspecified ptosis of left eyelid Plan: As per HPI at this time diagnosis of bilateral ocular myasthenia gravis and has been started on medication for this. He was positive for Lyme titers few weeks ago was started on doxycycline, though at re-evaluation at [facility] Lyme testing was negative and the diagnosis of Lyme was excluded. He would like retesting for Lyme here at the [place] lab as he felt that there was a mixup at the lab. (2) Myasthenia gravis: Code(s): G70.00 - Myasthenia gravis without (acute) exacerbation Plan: Has been started onpyridostigmine Has follow-up with [facility] Neurology in few weeks.. Orders: Orders Lipid Panel 2 Months E78.2 - Mixed hyperlipidemia Microalbumin, Random (w Creat) 2 Months I10 - Essential (primary) hypertension Comprehensive [place]. Panel Fast 2 Months I10 - Essential (primary) hypertension TSH reflex Free T4 2 Months E03.9 - Hypothyroidism, unspecified Lyme IgG/IgM w/reflex to WB 07/19/23 A69.20 - Lyme disease, unspecified, H02.402 - Unspecified ptosis of left eyelid Coding Level of Care Code Est Pt Level 4 (27095) Diagnoses Ptosis, left eyelid H02.402 Myasthenia gravis G70.00
== END 2023-07-19 16:35 | disposition home or self-care (01) ==
PROVIDERS: PCP Physician Assistant; Visit Provider Physician Assistant
DX: H02.402 Unspecified ptosis of left eyelid (principal); G70.00 Myasthenia gravis without (acute) exacerbation
CPT/HCPCS: 99214

== ENCOUNTER 2023-07-19 16:40 | Outpatient (REF) | payer OTHER, SELFPAY ==
[2023-07-20 09:34] LABS: Lyme Blot 2.18 index
[2023-07-21 12:27] LABS: Lyme Abs Screen POSITIVE
[2023-07-25 20:48] LABS: 18 KD (IgG) Band NON-REACTIVE; 23 KD (IgG) Band NON-REACTIVE; 23 KD (IgM) Band NON-REACTIVE; 28 KD (IgG) Band NON-REACTIVE; 30 KD (IgG) Band NON-REACTIVE; 39 KD (IgM) Band NON-REACTIVE; 39KD (IgG) Band NON-REACTIVE; 41 KD (IgM) Band NON-REACTIVE; 41KD (IgG) Band NON-REACTIVE; 45 KD (IgG) Band NON-REACTIVE; 58 KD (IgG) Band NON-REACTIVE; 66 KD (IgG) Band NON-REACTIVE; 93 KD (IgG) Band NON-REACTIVE; Lyme IgG Blot Interp NEGATIVE (NEGATIVE); Lyme IgM Blot Interp NEGATIVE (NEGATIVE)
== END 2023-07-19 16:41 | disposition home or self-care (01) ==
LOC: HO.LAB 16:40
PROVIDERS: PCP Physician Assistant; Visit Provider Physician Assistant
DX: A69.20 Lyme disease, unspecified (principal); H02.402 Unspecified ptosis of left eyelid
CPT/HCPCS: 36415; 86617; 86618

== ENCOUNTER 2023-09-04 07:22 | Outpatient (REF) | payer OTHER, SELFPAY ==
[2023-09-04 08:41] LABS: Alanine Aminotransferase 35 U/L (0-40); Alkaline Phosphatase 68 U/L (39-117); Anion Gap 11 (12-20); Aspartate Amino Transferase 27 U/L (5-37); Bilirubin Total 2.1 mg/dL (0.0-1.0); Blood Urea Nitrogen 15 mg/dL (9-16); Calcium 9.4 mg/dL (8.4-10.2); Carbon Dioxide 30 mmol/L (22-29); Chloride 107 mmol/L (96-108); Cholesterol 112 mg/dL (<200); Estimated Glomerular Filt Rate > 60; Glucose Fasting 95 mg/dL (60-99); HDL Cholesterol 45 mg/dL (>40); LDL Cholesterol Calculated 52 mg/dL (<100); Potassium 4.9 mmol/L (3.3-5.1); Sodium 143 mmol/L (135-145); Total Protein 7.2 g/dL (6.5-8.0); Triglycerides 79 mg/dL (<150)
[2023-09-04 09:00] LABS: TSH reflex Free T4 1.31 uIU/mL (0.32-4.0)
[2023-09-04 12:09] LABS: Creatinine Urine 110.12 mg/dL
== END 2023-09-04 07:23 | disposition home or self-care (01) ==
LOC: HO.LAB 07:22
PROVIDERS: PCP Physician Assistant; Visit Provider Physician Assistant
DX: I10 Essential (primary) hypertension (principal); E03.9 Hypothyroidism, unspecified; E78.2 Mixed hyperlipidemia
CPT/HCPCS: 36415; 80053; 80061; 82043; 82570; 84443

== ENCOUNTER 2023-09-18 12:45 | Outpatient (AMB) | payer OTHER, SELFPAY ==
[2023-09-18 12:53] VITALS: BP 126/68; PULSE 65; RESP 16; O2SAT 98; BMI 25.3
--- NOTE | 2023-09-18 12:53 | A.OFFPC_ITS ---
Vital Signs 09/18/23 12:53 Height 5 ft 8 in Weight 166 lb 6 oz BMI 25.3 BP 126/68 Blood Pressure Location Lt brachial Position Sitting Respiration 16 Pulse 65 Pulse Source Pulse Oximeter Pulse Oximetry (%) 98 Oxygen Delivery Method Room Air Intake Visit Reasons: surgery on 09/25 cataract left eye Intake Note: Patient is here for a Pre-op for cataract surgery of the left eye scheduled with Dr. Gene Baltazar on 09/25/23. . 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 Language: Brazilian Accompanied by: Self / Same As Patient Allergies No Known Allergies Allergy (Verified 09/18/23 13:19) Medication List - Last Reconciled 09/18/23 by Ruiz Smiley PA-C apixaban (Eliquis) 5 mg PO BID aspirin 81 mg PO DAILY 90 days atorvastatin 80 mg PO DAILY 90 days ketorolac 0.5% drps ophthalmic (eye) levothyroxine 75 mcg PO DAILY 90 days lisinopril 10 mg PO DAILY prednisone mg PO pyridostigmine bromide 60 mg PO QID Tobacco use date assessed: 09/18/23 Fall risk assessment: No Falls in past year Last assessed Fall Risk: 09/18/23 Dental Screening Dental Screen Date: 09/18/23 Did you have a dental visit in the last 12 months?: No Did you have a dental problem in the last 6 months where you did not have access to dental care?: No Was dental information given to patient?: No HPI surgery on 09/25 cataract left eye HPI Details Patient is a 63-year-old Brazilian-speaking male here today for a preop visit. He is due for left cataract removal on September 25. Patient has a past medical history significant for hyperlipidemia, hypertension, hypothyroidism and a CVA, ocular myasthenia gravis with pertussis. CVA: Did have a CVA years ago to his MCA continues on Eliquis, antilipid medication and aspirin. .. Ocular myasthenia gravis: Followed by Neurology at [facility]. His myasthenia gravis medication has been increased also placed on steroids though does not feel it is helpful helping him regain strength of his eyelids. He is interested in a 2nd opinion from [place] neurology . HTN: BLood pressure acceptable today in office. [facility] Medical History (Updated 09/18/23 @ 13:22 by Ruiz Smiley PA-C) Arthritis of knee Hand arthritis Hyperlipidemia HTN (hypertension) Hypothyroidism [facility] current use of anticoagulant H/O ischemic right MCA stroke Acquired hyperbilirubinemia Surgical History Hx of colonoscopy No pertinent past surgical history Family History Father No problems noted. Mother No problems noted. 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 1. Little interest or pleasure in doing things: not at all 2. Feeling down, depressed, or hopeless: not at all 3. Trouble falling or staying asleep, or sleeping too much: not at all 4. Feeling tired or having little energy: not at all 5. Poor appetite or overeating: not at all 6. Feeling bad about yourself - or that you are a failure or have let yourself or your family down: not at all 7. Trouble concentrating on things, such as reading the newspaper or watching television: not at all 8. Moving or speaking so slowly that other people could have noticed. Or the opposite - being so fidgety or restless that you have been moving around a lot more than usual: not at all 9. Thoughts that you would be better off or of hurting yourself in some way: not at all Total score: 0 Depression Screening Interpretation: Negative Depression Screening Done: Yes 74765 - PHQ-9 Billing: Yes Source: Developed by Drs. Naif Loyd, Kristen Rob, Almas Roberto and colleagues, with an educational suzy from [employer]. Thrive Questionnaire Date Thrive assessed: 09/18/23 I am a: Patient What is your living situation today?: I have a steady place to live Within the past 12 months, did the food you bought not last and you didn't have the money to get more?: Never true Within the past 12 months, did you worry whether your food would run out before you got money to buy more?: Never true Do you have trouble paying for medicines?: No Do you have trouble getting transportation to medical appointments?: No Do you have trouble paying your heating and electricity bill?: No Do you have trouble taking care of your child, family member or friend?: No Do you have trouble with day-to-day activities such as bathing, preparing meals, shopping, managing finances, etc.?: No Are you currently unemployed and looking for a job?: No Are you interested in more education?: No Please select the resources that you would like help with: None Currently or been in a relationship where the following occur: no concerns reported THRIVE Score: 0 AUDIT C Alcohol Use Questionnaire (AUDIT-C) 1. How often do you have a drink containing alcohol?: Monthly or less 2. How many drinks containing alcohol do you have on a typical day when you are drinking?: 1 or 2 3. How often do you have six or more drinks on one occasion?: Never Total Score: 1 DAVID-7 AMB Questionnaire DAVID-7 Date DAVID - 7 assessed: 09/18/23 Feeling nervous, anxious, or on edge: 0 = Not at all Not being able to stop or control worryin = Not at all Worrying too much about different things: 0 = Not at all Trouble relaxin = Not at all Being so restless that it is hard to sit still: 0 = Not at all Becoming easily annoyed or irritable: 0 = Not at all Feeling afraid as if something awful might happen: 0 = Not at all Total DAVID-7 score (0-4 normal; 5-9 mild; 10-14 moderate; 15-21 severe): 0 Source: Developed by Drs. Naif Loyd, Kristen Rob, Almas Roberto and colleagues, with an educational suzy from [employer] DAVID-7 Assessment Billing DAVID-7 Assessment Tool: DAVID-7 Assessment 76992 Review of Systems Const Denies headache(s) Eyes Denies loss of vision ENT Denies vertigo, Denies dizziness, Denies headache(s) and Denies sore throat Card Denies chest pain, Denies leg edema and Denies lightheadedness Resp Denies cough, Denies hemoptysis and Denies wheezing GI Denies abdominal pain, Denies melena, Denies constipation, Denies diarrhea and Denies vomiting Denies dysuria, Denies urinary frequency and Denies urinary urgency Musc Denies arthralgias, Denies joint swelling, Denies numbness and Denies tingling Neuro Denies Abnormal speech present, Denies behavioral changes, Denies vertigo, Denies dizziness, Denies headache(s), Denies loss of vision, Denies memory loss, Denies numbness and Denies tingling Psych Denies anxiety, Denies behavioral changes, Denies depression, Denies memory loss and Denies panic attacks Lazaro/Lymph Denies easy bleeding and Denies easy bruising Aller/Immun Denies wheezing Physical exam (Primary Care) Vital Signs: Last Vital Signs Pulse 65 09/18/23 12:53 Resp 16 09/18/23 12:53 BP 126/68 09/18/23 12:53 Pulse Ox 98 09/18/23 12:53 Oxygen Delivery Method Room Air 09/18/23 12:53 BMI result Body Mass Index 25.3 Tobacco/Smoking Status: Tobacco use Status Tobacco use date assessed 09/18/23 09/18/23 13:11 Patient Tobacco Use Status Never used Tobacco 09/18/23 12:54 Tobacco use type Cigarette 09/18/23 12:54 e-Cigarette/Vaping Use Never Used 09/18/23 12:54 PHQ-9: PHQ-9 Score PHQ-9: Total score 0 09/18/23 13:11 Depression Screening Interpretation: Negative Thrive Assessment: Date of Thrive Assessment Date Thrive assessed 09/18/23 09/18/23 12:58 Currently or been in a relationship where the following occur: no concerns reported Const General: healthy appearing, no acute distress, alert and awake Nutritional Appearance: well nourished Orientation/consciousness: oriented to person, oriented to place and oriented to time HENMT Ears: TM's normal bilaterally General nose exam: Normal nasal mucous membranes and turbinates present Eyes Other: NOTED BILATERAL PTOSIS Conjunctivae: conjunctivae normal Sclerae: sclerae normal Pupils: Equal, round and reactive pupils present Neck Neck: Yes no lymphadenopathy and Yes no JVD Thyroid: Thyroid normal Carotids: no bruits Resp Effort & Inspection: normal respiratory effort and not tachypneic Auscultation: no crackles, no rales, no rhonchi and no wheezes Cardio Rate: regular rate Rhythm: regular rhythm Heart sounds: no murmurs and normal S1 and S2 GI Palpation (GI): Soft to palpation, nontender, no hepatomegaly and no splenomegaly Auscultation: normal bowel sounds Skin General skin exam: no rashes or lesions noted and dry skin Neuro General: oriented to person, oriented to place and oriented to time Cranial nerves: Yes Equal, round and reactive pupils present Speech: No Abnormal speech present Gait exam (Neuro): Normal gait present Motor exam (neuro): no tremor noted Extrem Right upper extremity: full ROM Left upper extremity: full ROM Right lower extremity: full ROM; no edema Left lower extremity: full ROM; no edema Psych Mental Status: mental status grossly normal Speech and movement: Normal speech and movement present Affect: normal affect Attitude: cooperative Thought process: Normal thought process present Assessment and Plan Assessment & Plan (1) Pre-op evaluation: Code(s): Z01.818 - Encounter for other preprocedural examination Plan: Patient's most recent labs and vitals are stable. Patient is medically clear for needed cataract removal (2) Myasthenia gravis: Code(s): G70.00 - Myasthenia gravis without (acute) exacerbation Plan: Patient followed by [facility] neurologist, has increased his myasthenia gravis medication and was started on steroids though has not been to effective on gaining strength to his eyelids. He would like a 2nd opinion to [place] neurologist (3) Cataract, left eye: Code(s): H26.9 - Unspecified cataract Qualifiers: Cataract type: age-related Age-related cataract type: other Qualified Code(s): H25.89 - Other age-related cataract Plan: As above Orders: Orders Lipid Panel Today E78.2 - Mixed hyperlipidemia TSH reflex Free T4 Today E03.9 - Hypothyroidism, unspecified Prostate Specific Antigen Scr Today E03.9 - Hypothyroidism, unspecified, Z12.5 - Encounter for screening for malignant neoplasm of prostate Comprehensive [place]. Panel Fast Today I10 - Essential (primary) hypertension Referrals Neurology Referral G70.00 - Myasthenia gravis without (acute) exacerbation Coding Level of Care Code Est Pt Level 4 (59782) Diagnoses Pre-op evaluation Z01.818 Myasthenia gravis G70.00 Other age-related cataract of left eye H25.89 Cataract type: age-related Age-related cataract type: other Additional Codes DAVID-7 Assessment Billing - DAVID-7 Assessment Tool: DAVID-7 Assessment 90855 ([id number])
== END 2023-09-18 14:18 | disposition home or self-care (01) ==
PROVIDERS: PCP Physician Assistant; Visit Provider Physician Assistant
DX: Z01.818 Encounter for other preprocedural examination (principal); G70.00 Myasthenia gravis without (acute) exacerbation; H25.89 Other age-related cataract
CPT/HCPCS: 99214

== ENCOUNTER 2023-11-07 14:34 | Outpatient (AMB) | payer OTHER, SELFPAY ==
[2023-11-07 14:36] VITALS: BP 122/66; PULSE 95; O2SAT 97; BMI 27.3
--- NOTE | 2023-11-07 14:36 | A.OFFPC_ITS ---
Vital Signs 11/07/23 14:36 Height 5 ft 8 in Weight 179 lb 8 oz BMI 27.3 BP 122/66 Blood Pressure Location Lt brachial Position Sitting Pulse 95 Pulse Source Pulse Oximeter Pulse Oximetry (%) 97 Oxygen Delivery Method Room Air Intake Visit Reasons: Annual PE R/S from 09/11 Intake Note: Patient is here today for a physical. 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 Language: Egyptian Accompanied by: Self / Same As Patient Allergies No Known Allergies Allergy (Verified 11/07/23 15:12) Medication List - Last Reconciled 11/07/23 by Ruiz Smiley PA-C apixaban (Eliquis) 5 mg PO BID aspirin 81 mg PO DAILY 90 days atorvastatin 80 mg PO DAILY 90 days ketorolac 0.5% drps ophthalmic (eye) levothyroxine 75 mcg PO DAILY 90 days lisinopril 10 mg PO DAILY pyridostigmine bromide 60 mg PO QID Tobacco use date assessed: 09/18/23 Fall risk assessment: No Falls in past year Last assessed Fall Risk: 11/07/23 Dental Screening Dental Screen Date: 09/18/23 [facility] Annual PE R/S from 09/11 HPI Details Patient is a 63-year-old Egyptian-speaking male here today for a annual physical. Patient has a past medical history significant for hyperlipidemia, hypertension, hypothyroidism and a CVA, ocular myasthenia gravis. CVA: Did have a CVA years ago to his MCA continues on Eliquis, antilipid medication and aspirin. Now followed by Neurology .. Ocular myasthenia gravis: Followed by Neurology at [facility]. His myasthenia gravis medication has been increased also placed on steroids though does not feel it is helpful helping him regain strength of his eyelids. He is asking for a referral to plastic surgeon for evaluation and recommendations on his bilateral proptosis. He is interested in a 2nd opinion from [place] neurolog[facility] unfortunately insurance does not covered . HTN: BLood pressure acceptable today in office. Will continue him on his current dose of lisinopril. Colonoscopy: Up-to-date with colonoscopy done in 2020, repeat 5 years. Vaccine: UTD with COVID , UTD with Tdap. 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 Mother No problems noted. 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 Naif Loyd, Kristen Rob, Almas Roberto and colleagues, with an educational suzy from [employer]. Review of Systems Const Denies body aches, Denies chills, Denies excessive sweating, Denies fatigue, Denies fever(s) and Denies headache(s) Eyes Denies blurry vision ENT Denies dysphagia, Denies vertigo, Denies dizziness, Denies headache(s), Denies hearing loss and Denies tinnitus Card Denies chest pain, Denies chest pain with activity, Denies syncope, Denies irregular heart rhythm and Denies dyspnea Resp Denies chest congestion, Denies cough, Denies hemoptysis, Denies dyspnea and Denies wheezing GI Denies abdominal pain, Denies melena, Denies hematochezia, Denies coffee ground emesis, Denies dysphagia, Denies diarrhea, Denies nausea and Denies vomiting Denies difficulty urinating, Denies dysuria, Denies urinary frequency, Denies urinary hesitancy and Denies urinary urgency Musc Denies arthralgias, Denies limited range of motion, Denies muscle cramps and Denies muscle weakness Skin/Breast Denies rash and Denies skin ulcer Neuro Denies Abnormal speech present, Denies confusion, Denies vertigo, Denies dizziness, Denies syncope, Denies headache(s), Denies memory loss and Denies seizure-like activity Psych Denies anxiety, Denies confusion, Denies depression, Denies memory loss, Denies panic attacks and Denies paranoia Endo Denies excessive sweating, Denies fatigue, Denies flushing, Denies polydipsia and Denies polyuria Aller/Immun Denies wheezing Physical exam (Primary Care) Vital Signs: Last Vital Signs Pulse 95 11/07/23 14:36 BP 122/66 11/07/23 14:36 Pulse Ox 97 11/07/23 14:36 Oxygen Delivery Method Room Air 11/07/23 14:36 BMI result Body Mass Index 27.3 Tobacco/Smoking Status: Tobacco use Status Tobacco use date assessed 09/18/23 11/07/23 14:36 Patient Tobacco Use Status Never used Tobacco 11/07/23 14:36 Tobacco use type Cigarette 11/07/23 14:36 e-Cigarette/Vaping Use Never Used 11/07/23 14:36 Thrive Assessment: Date of Thrive Assessment Date Thrive assessed 09/18/23 11/07/23 14:36 Const General: cooperative, comfortable, no acute distress, alert and awake; No confusion Orientation/consciousness: oriented to person, oriented to place, patient oriented x3 and No confusion HENMT Head: Yes normocephalic Ears: external ears normal and TM's normal bilaterally Face and sinus: No sinus tenderness Mouth: Normal oral and palatal mucosa present and tongue normal Teeth and gingiva: dentition normal and gingiva normal Throat: Yes posterior oropharynx normal, Yes tonsils normal and Yes uvula midline Eyes Conjunctivae: conjunctivae normal Sclerae: sclerae normal Pupils: Equal, round and reactive pupils present EOM: EOMs intact bilaterally Direct Ophthalmoscopy: No no photophobia Neck Neck: Yes no lymphadenopathy, No tender and Yes no JVD Thyroid: Thyroid normal Carotids: no bruits Chest Chest palpation & inspection: no tenderness Resp Effort & Inspection: normal respiratory effort, no audible wheezes, not labored and no stridor Auscultation: no crackles, no rales, no rhonchi and no wheezes Cardio Jugular venous distension: no JVD Rate: regular rate, not bradycardic and not tachycardic Rhythm: regular rhythm Bruits: no carotid bruits Peripheral pulses: Peripheral pulses 2+ throughout GI Inspection: Yes normal to inspection, No abdominal wall ecchymosis and No visible herniation Palpation (GI): Soft to palpation, nontender, no guarding, not rigid and No hepatosplenomegaly present Auscultation: normoactive bowel sounds General: Yes no CVA tenderness Back/Spine/Pelvis Back: no CVA tenderness and No back tenderness Cervical Spine: cervical ROM normal Thoracic/Lumbar Spine: thoracic and lumbar spine normal to inspection, straight leg raise negative bilaterally, No thoraco-lumbar ROM limited and No lumbar spinal tenderness Skin Lesions: no lesions Rashes: no rashes Wounds: no wounds Neuro General: oriented to person, oriented to place, patient oriented x3, CN's II-XI intact bilaterally and No confusion Cranial nerves: Yes Equal, round and reactive pupils present and Yes Normal accommodation reflex present Cognition (Neuro): normal cognition Speech: No Abnormal speech present Gait exam (Neuro): Normal gait present Motor exam (neuro): 5/5 motor strength present throughout Extrem Right upper extremity: full ROM; no cyanosis Left upper extremity: full ROM; no cyanosis Right lower extremity: no edema Left lower extremity: no edema Psych Appearance: grossly normal Mental Status: mental status grossly normal Affect: normal affect Attitude: cooperative Thought process: Normal thought process present Immunizations pneumoc 20-karin conj-dip cr(PF) 0.5 mL IM syringe Performing Provider: Ruiz Smiley PA-C Performing Location: [facility] Administered by: TAMMY Del Castillo on 11/07/23 15:24 Dose Route Admin Location Dispensed Lot Number Expiration Date 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 0.5 mL IM Left Deltoid 0.5 mL [id number] 09/27/24 [id number] [employer] VIS Given Date VIS Provided VIS Publication Date 11/07/23 Single Vaccine 21 Eligibility Eligibility Date Funding Source Not [facility] Eligible 11/07/23 Private Assessment and Plan Assessment & Plan (1) Annual physical exam: Code(s): Z00.00 - Encounter for general adult medical examination without abnormal findings (2) Myasthenia gravis: Code(s): G70.00 - Myasthenia gravis without (acute) exacerbation Plan: Patient followed by [facility] neurologist, has increased his myasthenia gravis medication and continues to take pyridostigmine 5 x per day. He feels that the medication has not been very effective. He is interested in seeing plastic surgeon about eyelid surgery due to his continued mitosis. (3) HLD (hyperlipidemia): Code(s): E78.5 - Hyperlipidemia, unspecified Qualifiers: Hyperlipidemia type: mixed hyperlipidemia Qualified Code(s): E78.2 - Mixed hyperlipidemia Plan: Patient's most recent lipid panel showing appropriate total cholesterol and LDL. Will continue him on high dose statin therapy with goal LDL to remain below 100 , optimally below 70 (4) HTN (hypertension): Code(s): I10 - Essential (primary) hypertension Qualifiers: Hypertension type: essential hypertension Qualified Code(s): I10 - Essential (primary) hypertension Plan: Patient's blood pressure acceptable today in office. Will continue him on his current dose of lisinopril. Goal blood pressures to remain below 140/90 (5) Hypothyroidism: Code(s): E03.9 - Hypothyroidism, unspecified Qualifiers: Hypothyroidism type: unspecified Qualified Code(s): E03.9 - Hypothyroidism, unspecified Plan: Patient's most recent TSH stable. Will continue on levothyroxine 75 mcg. Patient continues to be chemically in clinically euthyroid. (6) H/O ischemic right MCA stroke: Comment: 03/2019 Code(s): Z86.73 - Personal history of transient ischemic attack (TIA), and cerebral infarction without residual deficits Plan: Continues to follow neurology at [facility]. Continues on high potency statin, aspirin and blood pressure control. (7) Ptosis, left eyelid: Code(s): H02.402 - Unspecified ptosis of left eyelid Plan: As above patient continues to have proptosis of his eyelids. He would like to see plastic surgeon about eye lid surgery Orders: Orders Pneumococcal 20 Immunization 11/07/23 Z23 - Encounter for immunization TSH reflex Free T4 11/07/23 E03.9 - Hypothyroidism, unspecified Comprehensive [place]. Panel Fast 11/07/23 I10 - Essential (primary) hypertension Complete Blood Count no Diff 11/07/23 Z86.73 - Personal history of transient ischemic attack (TIA), and cerebral infarction without residual deficits Prostate Specific Antigen Scr 04/10/24 Z12.5 - Encounter for screening for malignant neoplasm of prostate, Z86.73 - Personal history of transient ischemic attack (TIA), and cerebral infarction without residual deficits Lipid Panel 11/07/23 E78.2 - Mixed hyperlipidemia Referrals Plastic Surgery Referral H02.402 - Unspecified ptosis of left eyelid Medications: Refilled atorvastatin 80 mg PO DAILY 90 tabs 2RF 90 days E78.5 - Hyperlipidemia, unspecified apixaban (Eliquis) 5 mg PO BID 60 tabs 6RF Z86.73 - Personal history of transient ischemic attack (TIA), and cerebral infarction without residual deficits aspirin 81 mg PO DAILY 90 tabs 2RF 90 days I10 - Essential (primary) hypertension levothyroxine 75 mcg PO DAILY 90 tabs 1RF 90 days E03.9 - Hypothyroidism, unspecified Coding Level of Care Code Est Pt Prev Care >65y(01035) Diagnoses Annual physical exam Z00.00 Myasthenia gravis G70.00 Mixed hyperlipidemia E78.2 Hyperlipidemia type: mixed hyperlipidemia Essential hypertension I10 Hypertension type: essential hypertension Hypothyroidism, unspecified type E03.9 Hypothyroidism type: unspecified H/O ischemic right MCA stroke Z86.73 Ptosis, left eyelid H02.402
== END 2023-11-07 17:37 | disposition home or self-care (01) ==
PROVIDERS: PCP Physician Assistant; Visit Provider Physician Assistant
DX: Z23 Encounter for immunization (principal)
CPT/HCPCS: 90471; 90677; 99397

== ENCOUNTER → 2024-05-05 10:34 | Outpatient (BNVA) | payer OTHER, SELFPAY | PROVIDERS: PCP Physician Assistant; Visit Provider Physician Assistant | DX: G47.00 Insomnia, unspecified (principal); E78.2 Mixed hyperlipidemia; I10 Essential (primary) hypertension; E03.9 Hypothyroidism, unspecified; Z86.73 Personal history of transient ischemic attack (TIA), and cerebral infarction without residual deficits; Z79.01 Long term (current) use of anticoagulants; Z79.52 Long term (current) use of systemic steroids; Z23 Encounter for immunization | CPT/HCPCS: 90471; 90656; 96127 ==

== ENCOUNTER 2024-05-05 10:35 | Outpatient (AMB) | payer OTHER, SELFPAY ==
--- NOTE | 2024-05-05 11:15 | A.OFFPC_ITS ---
Vital Signs 05/05/24 11:19 Height 5 ft 8 in Weight 191 lb BMI 29.0 BP 132/76 Blood Pressure Location Lt brachial Position Sitting Pulse 72 Pulse Source Pulse Oximeter Pulse Oximetry (%) 98 Oxygen Delivery Method Room Air Intake Visit Reasons: f/u Hypothyroid, HLD / CVA - see comments Mri Technologist Required: Yes Mri Technologist Language: Bulgarian Accompanied by: Self / Same As Patient Allergies No Known Allergies Allergy (Verified 05/05/24 11:24) Medication List - Last Reconciled 05/05/24 by Ruiz Smiley PA-C apixaban (Eliquis) 5 mg PO BID aspirin 81 mg PO DAILY 90 days atorvastatin 80 mg PO DAILY 90 days ketorolac 0.5% drps ophthalmic (eye) levothyroxine 75 mcg PO DAILY 90 days lisinopril 10 mg PO DAILY prednisone mg PO pyridostigmine bromide 60 mg PO QID Tobacco use date assessed: 09/18/23 Fall risk assessment: No Falls in past year Last assessed Fall Risk: 05/05/24 Dental Screening Dental Screen Date: 09/18/23 HPI f/u Hypothyroid, HLD / CVA - see comments HPI Details Patient is a 63-year-old Bulgarian-speaking male here today for a follow-up visit. Patient has a past medical history significant for hyperlipidemia, hypertension, hypothyroidism and a CVA, ocular myasthenia gravis. CVA: Did have a CVA years ago to his MCA continues on Eliquis, antilipid medication and aspirin. Now followed by Neurology at [facility] .. Ocular myasthenia gravis: Patient continues on Mestinon 60 mg 5 times a day and prednisone 15 mg daily with improvement of his left eye ptosis and diplopia. Recommendations for bone density screening has been made due to patient's long- term use of prednisone at this point. . HTN: BLood pressure acceptable today in office. Will continue him on his current dose of lisinopril. [facility] Medical History (Updated 05/05/24 @ 11:30 by Ruiz Smiley PA-C) Cataract, left eye Arthritis of knee Hand arthritis Hyperlipidemia HTN (hypertension) Hypothyroidism penitentiary current use of anticoagulant H/O ischemic right MCA stroke Acquired hyperbilirubinemia Surgical History Hx of colonoscopy No pertinent past surgical history Family History Father No problems noted. Mother No problems noted. 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 1. Little interest or pleasure in doing things: not at all 2. Feeling down, depressed, or hopeless: not at all 3. Trouble falling or staying asleep, or sleeping too much: not at all 4. Feeling tired or having little energy: not at all 5. Poor appetite or overeating: not at all 6. Feeling bad about yourself - or that you are a failure or have let yourself or your family down: not at all 7. Trouble concentrating on things, such as reading the newspaper or watching television: not at all 8. Moving or speaking so slowly that other people could have noticed. Or the opposite - being so fidgety or restless that you have been moving around a lot more than usual: not at all 9. Thoughts that you would be better off or of hurting yourself in some way: not at all Total score: 0 Depression Screening Interpretation: Negative Depression Screening Done: Yes 23338 - PHQ-9 Billing: Yes Source: Developed by Drs. Naif Loyd, Kristen Rob, Almas Roberto and colleagues, with an educational suzy from [employer]. Thrive Questionnaire Date Thrive assessed: 05/05/24 I am a: Patient What is your living situation today?: I have a steady place to live Within the past 12 months, did the food you bought not last and you didn't have the money to get more?: Never true Within the past 12 months, did you worry whether your food would run out before you got money to buy more?: Never true Do you have trouble paying for medicines?: No Do you have trouble getting transportation to medical appointments?: No Do you have trouble paying your heating and electricity bill?: No Do you have trouble taking care of your child, family member or friend?: No Do you have trouble with day-to-day activities such as bathing, preparing meals, shopping, managing finances, etc.?: No Are you currently unemployed and looking for a job?: No Are you interested in more education?: No Please select the resources that you would like help with: None Currently or been in a relationship where the following occur: No concerns reported THRIVE Score: 0 AUDIT C Alcohol Use Questionnaire (AUDIT-C) 1. How often do you have a drink containing alcohol?: Monthly or less 2. How many drinks containing alcohol do you have on a typical day when you are drinking?: 1 or 2 3. How often do you have six or more drinks on one occasion?: Never Total Score: 1 DAVID-7 AMB Questionnaire DAVID-7 Date DAVID - 7 assessed: 05/05/24 Feeling nervous, anxious, or on edge: 0 = Not at all Not being able to stop or control worryin = Not at all Worrying too much about different things: 0 = Not at all Trouble relaxin = Not at all Being so restless that it is hard to sit still: 0 = Not at all Becoming easily annoyed or irritable: 0 = Not at all Feeling afraid as if something awful might happen: 0 = Not at all Total DAVID-7 score (0-4 normal; 5-9 mild; 10-14 moderate; 15-21 severe): 0 Source: Developed by Drs. Naif Loyd, Kristen Rob, Almas Roberto and colleagues, with an educational suzy from [employer]. DAVID-7 Assessment Billing DAVID-7 Assessment Tool: DAVID-7 Assessment 83332 Review of Systems Const Denies headache(s) Eyes Denies loss of vision ENT Denies vertigo, Denies dizziness, Denies headache(s) and Denies sore throat Card Denies chest pain, Denies leg edema and Denies lightheadedness Resp Denies cough, Denies hemoptysis and Denies wheezing GI Denies abdominal pain, Denies melena, Denies constipation, Denies diarrhea and Denies vomiting Denies dysuria, Denies urinary frequency and Denies urinary urgency Musc Denies arthralgias, Denies joint swelling, Denies numbness and Denies tingling Neuro Denies Abnormal speech present, Denies behavioral changes, Denies vertigo, Denies dizziness, Denies headache(s), Denies loss of vision, Denies memory loss, Denies numbness and Denies tingling Psych Denies anxiety, Denies behavioral changes, Denies depression, Denies memory loss and Denies panic attacks Lazaro/Lymph Denies easy bleeding and Denies easy bruising Aller/Immun Denies wheezing Physical exam (Primary Care) Vital Signs: Last Vital Signs Pulse 72 05/05/24 11:19 BP 132/76 05/05/24 11:19 Pulse Ox 98 05/05/24 11:19 Oxygen Delivery Method Room Air 05/05/24 11:19 BMI result Body Mass Index 29.0 Tobacco/Smoking Status: Tobacco use Status Tobacco use date assessed 09/18/23 05/05/24 11:15 Patient Tobacco Use Status Never used Tobacco 05/05/24 11:15 Tobacco use type Cigarette 05/05/24 11:15 e-Cigarette/Vaping Use Never Used 05/05/24 11:15 PHQ-9: PHQ-9 Score PHQ-9: Total score 0 05/05/24 11:24 Depression Screening Interpretation: Negative Thrive Assessment: Date of Thrive Assessment Date Thrive assessed 05/05/24 05/05/24 11:21 Currently or been in a relationship where the following occur: No concerns r eported Const General: healthy appearing, no acute distress, alert and awake Nutritional Appearance: well nourished Orientation/consciousness: oriented to person, oriented to place and oriented to time [facility] Ears: TM's normal bilaterally General nose exam: Normal nasal mucous membranes and turbinates present Eyes Conjunctivae: conjunctivae normal Sclerae: sclerae normal Pupils: Equal, round and reactive pupils present Neck Neck: Yes no lymphadenopathy and Yes no JVD Thyroid: Thyroid normal Carotids: no bruits Resp Effort & Inspection: normal respiratory effort and not tachypneic Auscultation: no crackles, no rales, no rhonchi and no wheezes Cardio Rate: regular rate Rhythm: regular rhythm Heart sounds: no murmurs and normal S1 and S2 GI Palpation (GI): Soft to palpation, nontender, no hepatomegaly and no s plenomegaly Auscultation: normal bowel sounds Skin General skin exam: no rashes or lesions noted and dry skin Neuro General: oriented to person, oriented to place and oriented to time Cranial nerves: Yes Equal, round and reactive pupils present Speech: No Abnormal speech present Gait exam (Neuro): Normal gait present Motor exam (neuro): no tremor noted Extrem Right upper extremity: full ROM Left upper extremity: full ROM Right lower extremity: full ROM; no edema Left lower extremity: full ROM; no edema Psych Mental Status: mental status grossly normal Speech and movement: Normal speech and movement present Affect: normal affect Attitude: cooperative Thought process: Normal thought process present Office Procedures Flu Questionnaire Does the patient have a severe egg allergy?: No Does the patient have severe life threatening allergies?: No Does the patient have a fever or illness today?: No Has the patient ever had Guillain-[place] Syndrome?: No Has the patient ever had any past reaction to a flu shot?: No Immunizations Fluarix Triv [id number] (PF) 45 mcg (15 mcg x 3)/0.5 mL IM syringe Performing Provider: Ruiz Smiley PA-C [place] [facility] Administered by: TAMMY Del Castillo on 05/05/24 11:24 Dose Route Admin Location Dispensed Lot Number Expiration Date NDC [employer] 0.5 mL IM Left Deltoid 0.5 mL [id number] 01/26/25 [id number] [employer] VIS Given Date VIS Provided VIS Publication Date 05/05/24 Single Vaccine 21 Eligibility Eligibility Date Funding Source Not [facility] Eligible 05/05/24 Private Coding Level of Care Code Est Pt Level 4 (73899) Diagnoses Myasthenia gravis G70.00 H/O ischemic right MCA stroke Z86.73 Mixed hyperlipidemia E78.2 Hyperlipidemia type: mixed hyperlipidemia Essential hypertension I10 Hypertension type: essential hypertension Hypothyroidism, unspecified type E03.9 Hypothyroidism type: unspecified penitentiary systemic steroid user Z79.52 Additional Codes DAVID-7 Assessment Billing - DAVID-7 Assessment Tool: DAVID-7 Assessment 12631 ([id number]) Assessment & Plan Assessment & Plan (1) Myasthenia gravis: Code(s): G70.00 - Myasthenia gravis without (acute) exacerbation Category: Medical Plan: Patient continues to follow Neurology. He reports he is consistent with taking his medication 5 times a day and has been slowly weaning prednisone. Has gained weight since being on prednisone and he does understand this may be a side effect. Also has been on steroids for quite some time due to his ocular myasthenia gravis and is willing to do a bone density to evaluate for osteoporosis. (2) H/O ischemic right MCA stroke: Comment: 03/2019 Code(s): Z86.73 - Personal history of transient ischemic attack (TIA), and cerebral infarction without residual deficits Category: Medical Plan: As per HPI patient did experience a stroke in 2019. Continues on high dose statin therapy and Eliquis 5 mg b.i.d.. He denies any overt signs of bleeding. Blood pressure today in office acceptable. (3) HLD (hyperlipidemia): Code(s): E78.5 - Hyperlipidemia, unspecified Category: Medical Qualifiers: Hyperlipidemia type: mixed hyperlipidemia Qualified Code(s): E78.2 - Mixed hyperlipidemia Plan: As above patient continues on high dose statin therapy. He will get fasting lipid panel done before next appointment. Goal LDL is to be below 100 (4) HTN (hypertension): Code(s): I10 - Essential (primary) hypertension Category: Medical Qualifiers: Hypertension type: essential hypertension Qualified Code(s): I10 - Essential (primary) hypertension Plan: Patient's blood pressure acceptable today in office. Continues on lisinopril 10 mg daily with good effect. Goal blood pressures to remain below 130/90 (5) Hypothyroidism: Code(s): E03.9 - Hypothyroidism, unspecified Category: Medical Qualifiers: Hypothyroidism type: unspecified Qualified Code(s): E03.9 - Hypothyroidism, unspecified Plan: As per HPI patient continues with levothyroxine 75 mcg. Most recent TSH has been stable. 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
[2024-05-05 11:19] VITALS: BP 132/76; PULSE 72; O2SAT 98; BMI 29.0
== END 2024-05-05 11:40 | disposition home or self-care (01) ==
PROVIDERS: PCP Physician Assistant; Visit Provider Physician Assistant
DX: G70.00 Myasthenia gravis without (acute) exacerbation (principal); Z86.73 Personal history of transient ischemic attack (TIA), and cerebral infarction without residual deficits; E78.2 Mixed hyperlipidemia; I10 Essential (primary) hypertension; E03.9 Hypothyroidism, unspecified; Z79.52 Long term (current) use of systemic steroids; Z23 Encounter for immunization

== ENCOUNTER 2024-05-29 10:17 | Outpatient (REF) | payer OTHER, SELFPAY ==
--- NOTE | ~2024-05-29 | MM_ITS ---
EXAMINATION: BONE DENSITOMETRY CLINICAL INDICATION: Long-term (current) use of systemic steroids. COMPARISON: This is the patient's baseline examination. TECHNIQUE: Using a [employer] DXA System (software version: 13.1) manufactured by [employer], dual-energy x-ray absorptiometry was performed of the lumbar spine and left hip. The images are of good technical quality. Summary results are attached. FINDINGS: LEFT FEMUR, NECK: BMD 0.979 g/cm2, Z-score 0.1, T-score -0.7, normal. LEFT FEMUR, TOTAL: BMD 1.072 g/cm2, Z-score 0.1, T-score -0.2, normal. AP SPINE L1-L4: BMD 0.975 g/cm2, Z-score -2.0, T-score -2.0, osteopenia. IDENTIFIED RISK FACTORS: Glucocorticoids (chronic). HISTORY OF FRACTURE: None listed. MEDICATIONS: Calcium. MM/XR DEXA axial skeleton IMPRESSION: 1. DIAGNOSIS: Osteopenia based on the lowest T-score value of -2.0 in the lumbar spine applying World Health Organization criteria. 2. 10-YEAR FRACTURE RISK PREDICTION, FRAX: Major osteoporotic fracture (clinical spine, forearm, hip or shoulder) 4.2%. Hip fracture 0.5%. 3. Treatment Recommendations: NOF guidelines recommend consideration for treatment in postmenopausal women and men age 50 and older presenting with the following: -A hip or vertebral (clinical or morphometric) fracture. -T-score less than or equal to -2.5 at the femoral neck or spine after appropriate evaluation to exclude secondary causes. -Low bone mass at the hip or spine and a 10-year fracture probability by FRAX of greater than or equal to 3% for hip fracture or greater than or equal to 20% for major osteoporotic fracture based on the [place] adapted WHO algorithm. 4. Other Recommendations: All treatment decisions require clinical judgment and consideration of individual patient factors, including patient preferences, comorbidities, previous drug use, risk factors not captured in the FRAX model (e.g. frailty, falls, vitamin D deficiency, increased bone turnover, interval significant decline in bone density) and possible under or overestimation of fracture risk by FRAX. Additional medical evaluation for secondary cause of low bone mineral density may be appropriate. FUTURE SCAN RECOMMENDATION: People with diagnosed cases of osteoporosis or at high risk for fracture should have regular bone mineral density tests. For patients eligible for Medicare, routine testing is allowed once every 2 years. The testing frequency can be increased to one year for patients who have rapidly progressing disease, those who are receiving or discontinuing medical therapy to restore bone mass, or have additional risk factors. Electronically signed by: Hai Cedillo MD 06/03/2024 05:10 PM JONNY
== END 2024-05-29 10:18 | disposition home or self-care (01) ==
LOC: HO.MAMMO 10:17
PROVIDERS: PCP Physician Assistant; Visit Provider Physician Assistant
DX: Z13.820 Encounter for screening for osteoporosis (principal); Z79.52 Long term (current) use of systemic steroids
CPT/HCPCS: 77080

== ENCOUNTER 2024-10-14 07:59 | Outpatient (REF) | payer MEDICARE, SELFPAY ==
[2024-10-14 09:33] LABS: Hemoglobin 14.2 g/dl (14.0-18.0); Mean Corpuscular Hemoglobin 28.6 pg (27.0-33.0); Mean Corpuscular Volume 86.7 fL (80.0-98.0); Mean Platelet Volume 9.9 fL (9.4-12.4); Platelet Count 256 X10*3/uL (160-400); Red Blood Count 4.96 X10*6/uL (4.60-5.80); Red Cell Distribution Width 12.9 % (11.0-16.0)
[2024-10-14 10:11] LABS: Alanine Aminotransferase 25 U/L (0-40); Alkaline Phosphatase 61 U/L (39-117); Anion Gap 10 (12-20); Aspartate Amino Transferase 18 U/L (5-37); Bilirubin Total 1.4 mg/dL (0.0-1.0); Blood Urea Nitrogen 20 mg/dL (9-16); Calcium 8.7 mg/dL (8.4-10.2); Carbon Dioxide 27 mmol/L (22-29); Chloride 107 mmol/L (96-108); Cholesterol 178 mg/dL (<200); Estimated Glomerular Filt Rate > 60; Glucose Fasting 108 mg/dL (60-99); HDL Cholesterol 54 mg/dL (>40); LDL Cholesterol Calculated 111 mg/dL (<100); Potassium 4.4 mmol/L (3.3-5.1); Sodium 140 mmol/L (135-145); Total Protein 7.4 g/dL (6.5-8.0); Triglycerides 67 mg/dL (<150)
[2024-10-14 10:16] LABS: TSH reflex Free T4 4.36 uIU/mL (0.32-4.0)
[2024-10-14 10:19] LABS: Prostate Specific Antigen Scr 0.46 ng/mL (<0.05-4.0)
[2024-10-14 10:54] LABS: Free T4 (Free Thyroxine) 0.79 ng/dL (0.71-1.85)
== END 2024-10-14 08:00 | disposition home or self-care (01) ==
LOC: HO.LAB 07:59
PROVIDERS: PCP Physician Assistant; Visit Provider Physician Assistant
DX: Z01.818 Encounter for other preprocedural examination (principal); Z12.5 Encounter for screening for malignant neoplasm of prostate; G47.00 Insomnia, unspecified; E78.2 Mixed hyperlipidemia; I10 Essential (primary) hypertension; E03.9 Hypothyroidism, unspecified; Z79.52 Long term (current) use of systemic steroids; Z86.73 Personal history of transient ischemic attack (TIA), and cerebral infarction without residual deficits
CPT/HCPCS: 36415; 80053; 80061; 84153; 84439; 84443; 85027; 96127; 99212

== ENCOUNTER 2024-10-14 13:58 | Outpatient (AMB) | payer MEDICARE, SELFPAY ==
[2024-10-14 14:17] VITALS: BP 128/76; PULSE 84; RESP 18; TEMP 36.7; O2SAT 97; BMI 29.5
--- NOTE | 2024-10-14 14:17 | MHC.PC.OV ---
Vital Signs 10/14/24 14:17 Height 5 ft 8 in Weight 194 lb BMI 29.5 BP 128/76 Blood Pressure Location Lt brachial Position Sitting Respiration 18 Pulse 84 Pulse Source Pulse Oximeter Temp 98.0 F Temp Source Oral Pulse Oximetry (%) 97 Oxygen Delivery Method Room Air Intake Visit Reasons: vitrectomy on October 27 Intake Note: Patient is here for a Pre-op for OD vitrectomy scheduled with [facility] on 10/27/2024. Product Accountant Required: Yes Product Accountant Language: Motorized Squad Commanding Officer Name: Used tablet- jessica [id number] Accompanied by: Self / Same As Patient Allergies No Known Allergies Allergy (Verified 10/14/24 14:58) Medication List - Last Reconciled 10/14/24 by JEANETTE Lara apixaban (Eliquis) 5 mg PO BID aspirin 81 mg PO DAILY 90 days atorvastatin 80 mg PO DAILY 90 days ketorolac 0.5% drps ophthalmic (eye) levothyroxine 75 mcg PO DAILY 90 days lisinopril 10 mg PO DAILY prednisolone acetate 1% drps ophthalmic (eye) prednisone mg PO pyridostigmine bromide 60 mg PO QID Tobacco use date assessed: 10/14/24 Fall risk assessment: No Falls in past year Last assessed Fall Risk: 10/14/24 Dental Screening Dental Screen Date: 10/14/24 Did you have a dental visit in the last 12 months?: Yes Did you have a dental problem in the last 6 months where you did not have access to dental care?: No Was dental information given to patient?: Patient has dentist HPI vitrectomy on October 27 HPI Details The patient is a 64-year-old male who was presenting today for preop clearance. Patient of TRICIA Paige Surgery: The vitrectomy of right eye due to subluxed IOL right eye Surgeon/location: Dr. Lauri Tadeo at [facility], [place], [place] Anesthesia: General The patient denies any history of perioperative hypothermia. The patient had a right MCA in 2019; he is currently on Apixaban 5 BID and aspirin 81 mg daily. PT 12.5, INR 1.1, discussed with that he would have to stop these two medications 24 hours before the day of the surgery. Explained to him that this increased his chance of having a clot, but it is only being held for a short period. Medical history is significant for right MCA stroke, myasthenia gravis, long-term systemic steroid use her (currently on prednisone 5 mg daily), HTN, hypothyroidism-levothyroxine increased to 100 mcg-to recheck TFTs in 6 weeks, hyperlipidemia. EKG completed-showed sinus rhythm with first-degree heart block, right bundle branch block, same [facility], patient is asymptomatic Patient denies shortness of breath, chest pain, dizziness, heart palpitation . 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 Mother No problems noted. 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 1. Little interest or pleasure in doing things: not at all 2. Feeling down, depressed, or hopeless: not at all 3. Trouble falling or staying asleep, or sleeping too much: not at all 4. Feeling tired or having little energy: not at all 5. Poor appetite or overeating: not at all 6. Feeling bad about yourself - or that you are a failure or have let yourself or your family down: not at all 7. Trouble concentrating on things, such as reading the newspaper or watching television: not at all 8. Moving or speaking so slowly that other people could have noticed. Or the opposite - being so fidgety or restless that you have been moving around a lot more than usual: not at all 9. Thoughts that you would be better off or of hurting yourself in some way: not at all Total score: 0 Depression Screening Interpretation: Negative Depression Screening Done: Yes 86102 - PHQ-9 Billing: Yes Source: Developed by Drs. Naif Loyd, Kristen Rob, Almas Roberto and colleagues, with an educational suzy from [employer]. Thrive Questionnaire Date Thrive assessed: 10/14/24 I am a: Patient What is your living situation today?: I have a steady place to live Within the past 12 months, did the food you bought not last and you didn't have the money to get more?: Never true Within the past 12 months, did you worry whether your food would run out before you got money to buy more?: Never true Do you have trouble paying for medicines?: No Do you have trouble getting transportation to medical appointments?: No Do you have trouble paying your heating and electricity bill?: No Do you have trouble taking care of your child, family member or friend?: No Do you have trouble with day-to-day activities such as bathing, preparing meals, shopping, managing finances, etc.?: No Are you currently unemployed and looking for a job?: No Are you interested in more education?: No Please select the resources that you would like help with: None Currently or been in a relationship where the following occur: No concerns reported THRIVE Score: 0 AUDIT C Alcohol Use Questionnaire (AUDIT-C) 1. How often do you have a drink containing alcohol?: Monthly or less 2. How many drinks containing alcohol do you have on a typical day when you are drinking?: 1 or 2 3. How often do you have six or more drinks on one occasion?: Never Total Score: 1 DAVID-7 AMB Questionnaire DAVID-7 Date DAVID - 7 assessed: 10/14/24 Feeling nervous, anxious, or on edge: 0 = Not at all Not being able to stop or control worryin = Not at all Worrying too much about different things: 0 = Not at all Trouble relaxin = Not at all Being so restless that it is hard to sit still: 0 = Not at all Becoming easily annoyed or irritable: 0 = Not at all Feeling afraid as if something awful might happen: 0 = Not at all Total DAVID-7 score (0-4 normal; 5-9 mild; 10-14 moderate; 15-21 severe): 0 Source: Developed by Drs. Naif Loyd, Kristen Rob, Almas Roberto and colleagues, with an educational suyz from [employer]. DAVID-7 Assessment Billing DAVID-7 Assessment Tool: DAVID-7 Assessment 54257 Review of Systems Const Denies headache(s) Eyes Denies loss of vision ENT Denies vertigo, Denies dizziness, Denies headache(s) and Denies sore throat Card Denies chest pain, Denies leg edema and Denies lightheadedness Resp Denies cough, Denies hemoptysis and Denies wheezing GI Denies abdominal pain, Denies melena, Denies constipation, Denies diarrhea and Denies vomiting Denies dysuria, Denies urinary frequency and Denies urinary urgency Musc Denies arthralgias, Denies joint swelling, Denies numbness and Denies tingling Neuro Denies Abnormal speech present, Denies behavioral changes, Denies vertigo, Denies dizziness, Denies headache(s), Denies loss of vision, Denies memory loss, Denies numbness and Denies tingling Psych Denies anxiety, Denies behavioral changes, Denies depression, Denies memory loss and Denies panic attacks Lazaro/Lymph Denies easy bleeding and Denies easy bruising Aller/Immun Denies wheezing Physical exam (Primary Care) Vital Signs: Last Vital Signs Temp 98.0 F 10/14/24 14:17 Pulse 84 10/14/24 14:17 Resp 18 10/14/24 14:17 BP 128/76 10/14/24 14:17 Pulse Ox 97 10/14/24 14:17 Oxygen Delivery Method Room Air 10/14/24 14:17 BMI result Body Mass Index 29.5 Tobacco/Smoking Status: Tobacco use Status Tobacco use date assessed 10/14/24 10/14/24 14:30 Patient Tobacco Use Status Never used Tobacco 10/14/24 14:18 Tobacco use type Cigarette 10/14/24 14:18 e-Cigarette/Vaping Use Never Used 03/18/25 14:18 PHQ-9: PHQ-9 Score PHQ-9: Total score 0 10/15/24 12:41 Depression Screening Interpretation: Negative Thrive Assessment: Date of Thrive Assessment Date Thrive assessed 10/14/24 10/14/24 14:30 Currently or been in a relationship where the following occur: No concerns reported Const General: healthy appearing, no acute distress, alert and awake Nutritional Appearance: well nourished Orientation/consciousness: oriented to person, oriented to place and oriented to time HENMT Ears: TM's normal bilaterally General nose exam: Normal nasal mucous membranes and turbinates present Eyes Conjunctivae: conjunctivae normal Sclerae: sclerae normal Pupils: Equal, round and reactive pupils present Neck Neck: Yes no lymphadenopathy and Yes no JVD Thyroid: Thyroid normal Carotids: no bruits Resp Effort & Inspection: normal respiratory effort and not tachypneic Auscultation: no crackles, no rales, no rhonchi and no wheezes Cardio Rate: regular rate Rhythm: regular rhythm Heart sounds: no murmurs and normal S1 and S2 GI Palpation (GI): Soft to palpation, nontender, no hepatomegaly and no splenomegaly Auscultation: normal bowel sounds Skin General skin exam: no rashes or lesions noted and dry skin Neuro General: oriented to person, oriented to place and oriented to time Cranial nerves: Yes Equal, round and reactive pupils present Speech: No Abnormal speech present Gait exam (Neuro): Normal gait present Motor exam (neuro): no tremor noted Extrem Right upper extremity: full ROM Left upper extremity: full ROM Right lower extremity: full ROM; no edema Left lower extremity: full ROM; no edema Psych Mental Status: mental status grossly normal Speech and movement: Normal speech and movement present Affect: normal affect Attitude: cooperative Thought process: Normal thought process present Results Reviewed Results Reviewed: Laboratory Tests 10/14/24 10/15/24 08:35 07:40 WBC 8.0 RBC 4.96 Hgb 14.2 Hct 43.0 MCV 86.7 MCH 28.6 Plt Count 256 D PT 12.5 H INR 1.1 Sodium 140 Potassium 4.4 Chloride 107 Carbon Dioxide 27 BUN 20 H Creatinine 1.15 Estimated GFR > 60 Fasting Glucose 108 H Calcium 8.7 D Total Bilirubin 1.4 H AST 18 ALT 25 Alkaline Phosphatase 61 Total Protein 7.4 Albumin 4.0 Triglycerides 67 Cholesterol 178 LDL Cholesterol, Calc 111 H HDL Cholesterol 54 TSH 4.36 H Free T4 0.79 Coding Level of Care Code Est Pt Level 4 (57175) Diagnoses Preoperative clearance Z01.818 FCI systemic steroid user Z79.52 Myasthenia gravis G70.00 H/O ischemic right MCA stroke Z86.73 Mixed hyperlipidemia E78.2 Hyperlipidemia type: mixed hyperlipidemia Essential hypertension I10 Hypertension type: essential hypertension Hypothyroidism, unspecified type E03.9 Hypothyroidism type: unspecified Additional Codes DAVID-7 Assessment Billing - DAVID-7 Assessment Tool: DAVID-7 Assessment 40277 ([id number]) PHQ-9 - 35887 - PHQ-9 Billing: Yes ([id number]) Time Spent (min) 42 Assessment & Plan Assessment & Plan (1) Preoperative clearance: Code(s): Z01.818 - Encounter for other preprocedural examination Category: Medical Plan: Regarding preop clearance, the patient is at acceptable risk for proposed surgery. Reviewed with the patient that no surgery is completely free of risk and that this examination is to assist the surgeon in reviewing informed consent. The patient is on apixaban 5 mg b.i.d. 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 He is currently on apixaban 5 mg b.i.d. and aspirin 81 mg daily. Discussed with patient that he has to hold these medications with 24 hours prior to procedure. He is aware of the risk and understand that this is for a short period of time (5) HLD (hyperlipidemia): Code(s): E78.5 - Hyperlipidemia, unspecified Category: Medical Qualifiers: Hyperlipidemia type: mixed hyperlipidemia Qualified Code(s): E78.2 - Mixed hyperlipidemia Plan: LDL 111, increased from 50 to last year. Does with the patient that he is recommended that his LDL should be less than 70. The patient is already on atorvastatin 80 mg daily. Encouraged to exercise for at least 30 minutes a day/5 days a week Healthy eating discussed. Encouraged to eat fruits/vegetables, protein-fish/baked chicken, and to avoid salty/fried foods, sweets, caffeine and carbohydrates. Encouraged to increase water intake 6-8 glasses a day (6) HTN (hypertension): Code(s): I10 - Essential (primary) hypertension Category: Medical Qualifiers: Hypertension type: essential hypertension Qualified Code(s): I10 - Essential (primary) hypertension Plan: Encouraged DASH diet and activity as tolerated. Refrain from alcohol use and if you smoke, smoking cessation is strongly advised Continue lisinopril 10 mg daily. Blood pressure was 128/76, within goal (7) Hypothyroidism: Code(s): E03.9 - Hypothyroidism, unspecified Category: Medical Qualifiers: Hypothyroidism type: unspecified Qualified Code(s): E03.9 - Hypothyroidism, unspecified Plan: TSH 4.36 and T4 0.79 Levothyroxine increased to 100 mcg daily, we will recheck labs in 6 weeks Orders: Orders TSH reflex Free T4 6 Weeks E03.9 - Hypothyroidism, unspecified Prothrombin Time INR 10/15/24 Z01.818 - Encounter for other preprocedural examination ECG 12 lead EKG 10/15/24 Z01.818 - Encounter for other preprocedural examination Free T4 (Free Thyroxine) 6 Weeks E03.9 - Hypothyroidism, unspecified Medications: New levothyroxine 100 mcg PO DAILY 90 caps 2RF E03.9 - Hypothyroidism, unspecified Discontinued levothyroxine Discontinued Reason: Duplicate 75 mcg PO DAILY 90 days 90 tabs 1RF E03.9 - Hypothyroidism, unspecified
--- OUTSIDE RECORDS SUMMARY | 2024-10-14 16:45 | XMS_ITS | Clinical Summary ---
Author Organization [facility] Address [address] [place] [address] Care Team Providers Care Plate Driller Name Role Phone Ivette Barton PA-C Primary Care Provider [phone] Source Comments PLEASE NOTE, if this patient is a minor, it may be UNLAWFUL to discuss sensitive information that is contained in these records (such as FAMILY PLANNING, MENTAL HEALTH or SUBSTANCE ABUSE) with the minor patient's parent or other person without the patient's specific authorization.[facility] Allergies No known active allergies Medications lisinopril (PRINIVIL,ZESTRIL ) 20 mg tabletIndications :Essential hypertension Take 1 Tab by mouth once daily. 30 Tab 6 09/15/2015 Active Active Problems Problem Noted Date Diagnosed Date Essential hypertension 09/15/2015 H/O colonoscopy sp polypecto my at sigmoid. Biopsy showed Tubular Adenoma 06/18/2015 Overview (09/23/2015): GI 04/28/15. [facility] at [facility] Resolved Problems Problem Noted Date Diagnosed Date Resolved Date Pre-hypertension 03/03/2015 09/15/2015 Social History Tobacco Use Types Packs/Day Years Used Date Smoking Tobacco: Former Smokeless Tobacco: Former Quit: 07/15/1980 Alcohol Use Standard Drinks/Week Comments Yes 0 (1 standard drink = 0.6 oz pur e alcohol) socc Social Connections Answer Date Recorded Social Connections and Isolation 0 03/23/2019 Financial Resource Strain Answer Date R ecorded Financial Resource Strain 0 2018 Stress Answer Date Recorded Stress 0 03/23/2019 Physical Activity Answer Date Recorded Physical Activity 0 03/23/2019 Food Insecurity Answer Date Recorded Food 0 03/23/2019 Transportation Needs Answer Date Record ed Transportation 0 03/23/2019 Housing Stability Answer Date Recorded Housing 0 03/23/2019 Safety and Environment Answer Date Anedrson rded Safety 0 03/23/2019 Utilities Answer Date Recorded Utilities 0 03/23/2019 Employment Answer Date Recorded Employment 0 03/23/2019 Sex and Gender Information Value Date Recorded Sex Assigned at Not on file Legal Sex Male 10:29 AM PDT Gender Identity Not on file Sexual Orientation Not on file Last Filed Vital Signs Vital Sign Reading Time Taken Comments Blood Pressure 142/92 09/15/2015 11:19 AM EST Pulse 68 09/15/2015 11:19 AM EST Temperature 36.7 ??C (98 ??F) 09/15/2015 11:19 AM EST Respiratory Rate 16 09/15/2015 11:19 AM EST Oxygen Saturation - - Inhaled Oxygen Concentration - - Weight 80.9 kg (178 lb 6.4 oz) 09/15/2015 11:19 AM EST Height 170.2 cm (5' 7 ) 09/15/2015 11:19 AM EST Body Mass Index 27.94 09/15/2015 11:19 AM EST Plan of Treatment Not on file Insurance [employer] Member Subscriber Plan / Payer (Ef fective 2015-Present) Name:Zander Muñoz Relation to Subscriber:Self Name:Zander Muñoz Payer ID:[id number] Group ID:Not on file Type:[place] Address: [address] [address] Care Teams Plate Driller Relationship Specialty Start Date End Date Ivette Barton PA-C [address] [place] [address] PCP - General 09/24/18
--- OUTSIDE RECORDS SUMMARY | 2024-10-14 16:45 | XMS_ITS | Clinical Summary ---
Author Organization [facility] Address [address] [place] [address] Care Team Providers Care Medical Lab Technologist Name Role Phone Unavailable Primary Care Provider Unavailabl e Social History Tobacco Use Types Packs/Day Years Used Date Smoking Tobacco: Never Assessed Sex and Gender Information Value Date Recorded Sex Assigned at Not on file Legal Sex Male 4:54 AM EST Gender Identity Not on file Sexual Orientation Not on file Plan of Treatment Health Maintenance Due Date Last Done Comments DTaP,Tdap,and Td Vaccines (1 - Tdap) 1977 Pneumococcal Vaccine: 50+ Ye ars (1 of 1 - PCV) 2008 Zoster Vaccines (1 of 2) 2008 Abdominal Aortic Aneurysm (A AA) Screen 08/28/2023 Cholesterol Screening (Lipid Panel) 08/28/2023 Colorectal Cancer Screening: Colonoscopy 08/28/2023 Depression Screening 08/28/2023 Falls Risk Assessment 08/28/2023 Hepatitis C Screening 08/28/2023 Social Influencers of Health Screening 08/28/2023 COVID-19 Vaccine ( - 2023-2 5 season) 2024 Influenza Vaccine (#1) 2024 05/22/2023 RSV Immunization Patients 60 + Years Old (1 - 1-dose 75+ series) 2033 HIB Vaccines Aged Out No longer eligi ble based on patient's age to complete this topic HPV Vaccines Aged Out No longer eligi ble based on patient's age to complete this topic Hepatitis A Vaccines Aged Out No long er eligible based on patient's age to complete this topic Hepatitis B Vaccines Aged Out No long er eligible based on patient's age to complete this topic IPV Vaccines Aged Out No longer eligi ble based on patient's age to complete this topic MMR Vaccines Aged Out No longer eligi ble based on patient's age to complete this topic Meningococcal ACWY Vaccine Aged Out N o longer eligible based on patient's age to complete this topic Meningococcal B Vacine Aged Out No lo nger eligible based on patient's age to complete this topic RSV Immunization Patients Un belinda 20 months Aged Out No longer eligible b ased on patient's age to complete this topic Varicella Vaccines Aged Out No longer eligible based on patient's age to complete this topic Advance Directives Documents on File Type Date Recorded 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
== END 2024-10-14 15:41 | disposition home or self-care (01) ==
LOC: HO.HMCH 13:59
PROVIDERS: PCP Physician Assistant
DX: Z01.818 Encounter for other preprocedural examination (principal); Z79.52 Long term (current) use of systemic steroids; G70.00 Myasthenia gravis without (acute) exacerbation; Z86.73 Personal history of transient ischemic attack (TIA), and cerebral infarction without residual deficits; E78.2 Mixed hyperlipidemia; I10 Essential (primary) hypertension; E03.9 Hypothyroidism, unspecified

== ENCOUNTER 2024-10-15 07:30 | Outpatient (REF) | payer MEDICARE, SELFPAY ==
--- NOTE | 2024-10-15 07:41 | ECG_ITS ---
Test Reason : pre op Blood Pressure : */* mmHG Vent. Rate : 62 BPM Atrial Rate : 62 BPM P-R Int : 210 ms QRS Dur : 146 ms QT Int : 414 ms P-R-T Axes : 50 24 32 degrees QTcB Int : 420 ms Sinus rhythm with 1st degree A-V block Right bundle branch block Abnormal ECG No previous ECGs available Referred By: Jann Lopez Electronically Signed By: Ronan Gaitan
[2024-10-15 08:17] LABS: INTERNATIONAL NORM RATIO 1.1 (0.9-1.1); Prothrombin Time 12.5 SEC (10.9-12.4)
== END 2024-10-15 07:31 | disposition home or self-care (01) ==
LOC: HO.LAB 07:30
PROVIDERS: PCP Physician Assistant
DX: Z01.818 Encounter for other preprocedural examination (principal); I44.0 Atrioventricular block, first degree; I45.10 Unspecified right bundle-branch block
CPT/HCPCS: 36415; 85610; 93005

== ENCOUNTER → 2024-10-15 07:41 | Outpatient (BNV) | payer MEDICARE, SELFPAY | PROVIDERS: PCP Physician Assistant; Visit Provider Internal Medicine Cardiovascular Disease | DX: I44.0 Atrioventricular block, first degree (principal); I45.10 Unspecified right bundle-branch block | CPT/HCPCS: 93010 ==

== ENCOUNTER 2024-11-10 15:44 | Outpatient (AMB) | payer MEDICARE, SELFPAY ==
--- NOTE | 2024-11-10 15:45 | A.OFFPC_ITS ---
Vital Signs 11/10/24 16:06 Height 5 ft 8 in Weight 193 lb 4 oz BMI 29.4 BP 126/66 Blood Pressure Location Lt brachial Position Sitting Pulse 96 Pulse Source Pulse Oximeter Temp 97.8 F Temp Source Temporal Artery Scan Pulse Oximetry (%) 96 Oxygen Delivery Method Room Air Intake Visit Reasons: annual exam Intake Note: Patient is here today for a physical examination and is requesting LAWN CARE WORKER services. Referral has been faxed to [facility]. Supervisor Typesetting Required: Yes Supervisor Typesetting Language: Classics Teacher Name: used tablet- ID # [id number] Accompanied by: Self / Same As Patient Allergies No Known Allergies Allergy (Verified 11/10/24 16:43) Medication List - Last Reconciled 11/10/24 by Ruiz Smiley PA-C apixaban (Eliquis) 5 mg PO BID aspirin 81 mg PO DAILY 90 days atorvastatin 80 mg PO DAILY 90 days ketorolac 0.5% drps ophthalmic (eye) levothyroxine 100 mcg PO DAILY lisinopril 10 mg PO DAILY prednisolone acetate 1% drps ophthalmic (eye) prednisone mg PO pyridostigmine bromide 60 mg PO QID Tobacco use date assessed: 10/14/24 Dental Screening Dental Screen Date: 10/14/24 HPI annual exam HPI Details Patient is a 64-year-old [place] Islander-speaking male here today for a Routine Patient has a past medical history significant for hyperlipidemia, hypertension, hypothyroidism and a CVA, ocular myasthenia gravis. CVA: Did have a CVA years ago to his MCA continues on Eliquis, antilipid medication and aspirin. Now followed by Neurology at [facility]. Of note patient interested in getting a personal financial counselor at home to help him with activities of daily living secondary to his weakness and visual issues from his stroke. .. Ocular myasthenia gravis: Patient continues on Mestinon 60 mg 4 times a day and prednisone 5 mg daily with improvement of his left eye ptosis and diplopia. . HTN: BLood pressure acceptable today in office. Will continue him on his current dose of lisinopril 10 mg. Colonoscopy: Up-to-date with colonoscopy done in 2020, repeat 5 years. Vaccine: UTD with COVID , UTD with Tdap. utd PCV, Need Shingrex vaccine ( Unsure if had chicken pox as a child) Laboratory Tests 04/11/23 09/04/2309/04/24 07:55 07:35 07:40 RBC 4.87 Creatinine 1.13 Cholesterol 112 LDL Cholesterol, C alc 52 TSH 1.31 Urine Microalbumin 10.0 10/14/24 08:35 RBC 4.96 Creatinine 1.15 Cholesterol LDL Cholesterol, C alc TSH 4.36 H Urine Microalbumin PFSH Medical History Cataract, left eye Arthritis of knee Hand arthritis Hyperlipidemia HTN (hypertension) Hypothyroidism assisted current use of anticoagulant H/O ischemic right MCA stroke Acquired hyperbilirubinemia Surgical History Hx of colonoscopy No pertinent past surgical history Family History Father No problems noted. Mother No problems noted. 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 Naif Loyd, Kristen Rob, Almas Roberto and colleagues, with an educational suzy from [employer]. Review of Systems Const Denies body aches, Denies chills, Denies excessive sweating, Denies fatigue, Denies fever(s) and Denies headache(s) Eyes Denies blurry vision ENT Denies dysphagia, Denies vertigo, Denies dizziness, Denies headache(s), Denies hearing loss and Denies tinnitus Card Denies chest pain, Denies chest pain with activity, Denies syncope, Denies irregular heart rhythm and Denies dyspnea Resp Denies chest congestion, Denies cough, Denies hemoptysis, Denies dyspnea and Denies wheezing GI Denies abdominal pain, Denies melena, Denies hematochezia, Denies coffee ground emesis, Denies dysphagia, Denies diarrhea, Denies nausea and Denies vomiting Denies difficulty urinating, Denies dysuria, Denies urinary frequency, Denies urinary hesitancy and Denies urinary urgency Musc Denies arthralgias, Denies limited range of motion, Denies muscle cramps and Denies muscle weakness Skin/Breast Denies rash and Denies skin ulcer Neuro Denies Abnormal speech present, Denies confusion, Denies vertigo, Denies dizziness, Denies syncope, Denies headache(s), Denies memory loss and Denies seizure-like activity Psych Denies anxiety, Denies confusion, Denies depression, Denies memory loss, Denies panic attacks and Denies paranoia Endo Denies excessive sweating, Denies fatigue, Denies flushing, Denies polydipsia and Denies polyuria Aller/Immun Denies wheezing Physical exam (Primary Care) Vital Signs: Last Vital Signs Temp 97.8 F 11/10/24 16:06 Pulse 96 11/10/24 16:06 BP 126/66 11/10/24 16:06 Pulse Ox 96 11/10/24 16:06 Oxygen Delivery Method Room Air 11/10/24 16:06 BMI result Body Mass Index 29.4 Tobacco/Smoking Status: Tobacco use Status Tobacco use date assessed 10/14/24 11/10/24 15:46 Patient Tobacco Use Status Former Tobacco user 11/10/24 16:40 Tobacco use type Cigarette 11/10/24 16:40 e-Cigarette/Vaping Use Never Used 11/10/24 16:40 Thrive Assessment: Date of Thrive Assessment Date Thrive assessed 10/14/24 11/10/24 15:46 Const General: cooperative, comfortable, no acute distress, alert and awake; No confusion Orientation/consciousness: oriented to person, oriented to place, patient oriented x3 and No confusion HENMT Head: Yes normocephalic Ears: external ears normal and TM's normal bilaterally Face and sinus: No sinus tenderness Mouth: Normal oral and palatal mucosa present and tongue normal Teeth and gingiva: dentition normal and gingiva normal Throat: Yes posterior oropharynx normal, Yes tonsils normal and Yes uvula midline Eyes Conjunctivae: conjunctivae normal Sclerae: sclerae normal Pupils: Equal, round and reactive pupils present EOM: EOMs intact bilaterally Direct Ophthalmoscopy: No no photophobia Neck Neck: Yes no lymphadenopathy, No tender and Yes no JVD Thyroid: Thyroid normal Carotids: no bruits Chest Chest palpation & inspection: no tenderness Resp Effort & Inspection: normal respiratory effort, no audible wheezes, not labored and no stridor Auscultation: no crackles, no rales, no rhonchi and no wheezes Cardio Jugular venous distension: no JVD Rate: regular rate, not bradycardic and not tachycardic Rhythm: regular rhythm Bruits: no carotid bruits Peripheral pulses: Peripheral pulses 2+ throughout GI Inspection: Yes normal to inspection, No abdominal wall ecchymosis and No visible herniation Palpation (GI): Soft to palpation, nontender, no guarding, not rigid and No hepatosplenomegaly present Auscultation: normoactive bowel sounds General: Yes no CVA tenderness Back/Spine/Pelvis Back: no CVA tenderness and No back tenderness Cervical Spine: cervical ROM normal Thoracic/Lumbar Spine: thoracic and lumbar spine normal to inspection, straight leg raise negative bilaterally, No thoraco-lumbar ROM limited and No lumbar spinal tenderness Skin Lesions: no lesions Rashes: no rashes Wounds: no wounds Neuro General: oriented to person, oriented to place, patient oriented x3, CN's II-XI intact bilaterally and No confusion Cranial nerves: Yes Equal, round and reactive pupils present and Yes Normal accommodation reflex present Cognition (Neuro): normal cognition Speech: No Abnormal speech present Gait exam (Neuro): Normal gait present Motor exam (neuro): 5/5 motor strength present throughout Extrem Right upper extremity: full ROM; no cyanosis Left upper extremity: full ROM; no cyanosis Right lower extremity: no edema Left lower extremity: no edema Psych Appearance: grossly normal Mental Status: mental status grossly normal Affect: normal affect Attitude: cooperative Thought process: Normal thought process present Coding Level of Care Code Est Pt Prev Care >65y(39269) Diagnoses Annual physical exam Z00.00 Myasthenia gravis G70.00 H/O ischemic right MCA stroke Z86.73 Mixed hyperlipidemia E78.2 Hyperlipidemia type: mixed hyperlipidemia Essential hypertension I10 Hypertension type: essential hypertension Hypothyroidism, unspecified type E03.9 Hypothyroidism type: unspecified Assessment & Plan Assessment & Plan (1) Annual physical exam: Code(s): Z00.00 - Encounter for general adult medical examination without abnormal findings Category: Medical Plan: as per [facility] (2) Myasthenia gravis: Code(s): G70.00 - Myasthenia gravis without (acute) exacerbation Category: Medical Plan: Patient continues to follow Neurology. He reports he is consistent with taking his medication 5 times a day and has been slowly weaning prednisone, now on 5 mg daily. He is asking for a home LAWN CARE WORKER to help him with activities daily living due to his lack of vision and some weakness. (3) H/O ischemic right MCA stroke: Comment: 03/2019 Code(s): Z86.73 - Personal history of transient ischemic attack (TIA), and cerebral infarction without residual deficits Category: Medical Plan: As per HPI patient did experience a stroke in 2019. Continues on high dose statin therapy and Eliquis 5 mg b.i.d.. He denies any overt signs of bleeding. Blood pressure today in office acceptable. (4) HLD (hyperlipidemia): Code(s): E78.5 - Hyperlipidemia, unspecified Category: Medical Qualifiers: Hyperlipidemia type: mixed hyperlipidemia Qualified Code(s): E78.2 - Mixed hyperlipidemia Plan: As above patient continues on high dose statin therapy. He will get fasting lipid panel done before next appointment. Goal LDL is to be below 100 (5) HTN (hypertension): Code(s): I10 - Essential (primary) hypertension Category: Medical Qualifiers: Hypertension type: essential hypertension Qualified Code(s): I10 - Essential (primary) hypertension Plan: Patient's blood pressure acceptable today in office. Continues on lisinopril 10 mg daily with good effect. Goal blood pressures to remain below 130/90 (6) Hypothyroidism: Code(s): E03.9 - Hypothyroidism, unspecified Category: Medical Qualifiers: Hypothyroidism type: unspecified Qualified Code(s): E03.9 - Hypothyroidism, unspecified Plan: As per HPI patient continues with levothyroxine 100 mcg. Most recent TSH slightly high . Will recheck his TSH to assure normal. Orders: Orders Lipid Panel 11/10/24 E78.2 - Mixed hyperlipidemia Complete Blood Count no Diff 11/10/24 I10 - Essential (primary) hypertension TSH reflex Free T4 11/10/24 E03.9 - Hypothyroidism, unspecified Comprehensive [place]. Panel Fast 11/10/24 I10 - Essential (primary) hypertension Medications: Refilled lisinopril 10 mg PO DAILY 90 tabs 4RF I10 - Essential (primary) hypertension Patient Instructions: Goal: Blood pressure to remain below 140/90, LDL to be optimally below 100 Barriers: Adherence to physical activity and healthy eating habits
[2024-11-10 16:06] VITALS: BP 126/66; PULSE 96; TEMP 36.6; O2SAT 96; BMI 29.4
--- OUTSIDE RECORDS SUMMARY | 2024-11-10 18:06 | XMS_ITS | Clinical Summary ---
Author Organization [facility] [facility] ity Address [address] [place] [address] Care Team Providers Care Rn Wound Name Role Phone Unavailable Primary Care Provider [...] - 2023-2 5 season) 2024 Influenza Vaccine (Season Ended) 2025 05/22/20 23 RSV Immunization Adult Patie nts (1 - 1-dose 75+ series) 2033 HIB [...] age to complete this topic Meningococcal B Vaccine Aged Out No l onger eligible based on patient's age to complete this topic RSV Immunization Patients Un belinda 20 months Aged Out No longer eligible b ased on patient's age to complete this topic Varicella Vaccines Aged Out No longer eligible based on patient's age to complete this topic Advance Directives Documents on File Type Date Recorded 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
--- OUTSIDE RECORDS SUMMARY | 2024-11-10 18:06 | XMS_ITS | Clinical Summary ---
Author Organization [facility] Address [address] [place] [address] Care Team Providers Care Senior Portfolio Analyst Name Role Phone Ivette Barton PA-C Primary Care Provider [phone] Source Comments PLEASE NOTE, if this patient [...] 06/18/2015 Overview (09/23/2015): GI 04/28/15. Elias at [facility] Resolved Problems Problem Noted Date Diagnosed Date [...] 0 03/23/2019 Safety and Environment Answer Date Anderson rded Safety 0 03/23/2019 Utilities Answer Date [...] Plan of Treatment Not on file Insurance [employer] Member Subscriber Plan / Payer (Ef fective 2015-Present) Name:Zander Muñoz Relation to Subscriber:Self Name:Zander Muñoz Payer ID:[id number] Group ID:Not on file Type:[place] Address: [address] [address] Care Teams Senior Portfolio Analyst Relationship Specialty Start Date End Date Ivette Barton PA-C [address] [place] [address] PCP - General 09/24/18
== END 2024-11-10 16:53 | disposition home or self-care (01) ==
LOC: HO.HMCH 15:44
PROVIDERS: PCP Physician Assistant; Visit Provider Physician Assistant
DX: Z00.00 Encounter for general adult medical examination without abnormal findings (principal); G70.00 Myasthenia gravis without (acute) exacerbation; Z86.73 Personal history of transient ischemic attack (TIA), and cerebral infarction without residual deficits; E78.2 Mixed hyperlipidemia; I10 Essential (primary) hypertension; E03.9 Hypothyroidism, unspecified

== ENCOUNTER → 2024-11-10 15:44 | Outpatient (BNVA) | payer MEDICARE, SELFPAY | PROVIDERS: PCP Physician Assistant; Visit Provider Physician Assistant | DX: Z00.00 Encounter for general adult medical examination without abnormal findings (principal); E78.2 Mixed hyperlipidemia; E03.9 Hypothyroidism, unspecified; I10 Essential (primary) hypertension; G47.00 Insomnia, unspecified; Z87.891 Personal history of nicotine dependence; Z86.73 Personal history of transient ischemic attack (TIA), and cerebral infarction without residual deficits; Z79.01 Long term (current) use of anticoagulants | CPT/HCPCS: 99397 ==

== ENCOUNTER 2025-01-22 14:21 | Outpatient (AMB) | payer MEDICARE, SELFPAY ==
[2025-01-22 14:24] VITALS: BP 130/72; PULSE 73; O2SAT 98; BMI 30.4
--- NOTE | 2025-01-22 14:24 | MHC.PC.OV ---
Vital Signs 01/22/25 14:24 Height 5 ft 8 in Weight 200 lb BMI 30.4 BP 130/72 Blood Pressure Location Lt brachial Position Sitting Pulse 73 Pulse Source Pulse Oximeter Pulse Oximetry (%) 98 Oxygen Delivery Method Room Air Intake Visit Reasons: BElls palsy Rack Room Worker Required: Yes Rack Room Worker Language: Haitian Allergies No Known Allergies Allergy (Verified 01/22/25 14:25) Medication List - Last Reconciled 01/22/25 by Garcia Chi MD apixaban (Eliquis) 5 mg PO BID aspirin 81 mg PO DAILY 90 days atorvastatin 80 mg PO DAILY 90 days ketorolac 0.5% drps ophthalmic (eye) levothyroxine 100 mcg PO DAILY lisinopril 10 mg PO DAILY prednisolone acetate 1% drps ophthalmic (eye) prednisone mg PO .QD pyridostigmine bromide 60 mg PO QID Tobacco use date assessed: 10/14/24 Fall risk assessment: No Falls in past year Last assessed Fall Risk: 01/22/25 Dental Screening Dental Screen Date: 10/14/24 HPI BElls palsy HPI Details Gagan [id number] estonian interpret [facility] Medical History Cataract, left eye Arthritis of knee Hand arthritis Hyperlipidemia HTN (hypertension) Hypothyroidism retirement current use of anticoagulant H/O ischemic right MCA stroke Acquired hyperbilirubinemia Surgical History Hx of colonoscopy No pertinent past surgical history Family History Father No problems noted. Mother No problems noted. 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 1. Little interest or pleasure in doing things: not at all 2. Feeling down, depressed, or hopeless: not at all 3. Trouble falling or staying asleep, or sleeping too much: not at all 4. Feeling tired or having little energy: not at all 5. Poor appetite or overeating: not at all 6. Feeling bad about yourself - or that you are a failure or have let yourself or your family down: not at all 7. Trouble concentrating on things, such as reading the newspaper or watching television: not at all 8. Moving or speaking so slowly that other people could have noticed. Or the opposite - being so fidgety or restless that you have been moving around a lot more than usual: not at all 9. Thoughts that you would be better off or of hurting yourself in some way: not at all Total score: 0 Source: Developed by Drs. Naif Loyd, Kristen Rob, Almas Roberto and colleagues, with an educational suzy from [employer]. Thrive Questionnaire Date Thrive assessed: 10/14/24 I am a: Patient What is your living situation today?: I have a steady place to live Within the past 12 months, did the food you bought not last and you didn't have the money to get more?: Never true Within the past 12 months, did you worry whether your food would run out before you got money to buy more?: Never true Do you have trouble paying for medicines?: No Do you have trouble getting transportation to medical appointments?: No Do you have trouble paying your heating and electricity bill?: No Do you have trouble taking care of your child, family member or friend?: No Do you have trouble with day-to-day activities such as bathing, preparing meals, shopping, managing finances, etc.?: No Are you currently unemployed and looking for a job?: No Are you interested in more education?: Yes Please select the resources that you would like help with: None Currently or been in a relationship where the following occur: No concerns reported THRIVE Score: 0 AUDIT C Alcohol Use Questionnaire (AUDIT-C) 1. How often do you have a drink containing alcohol?: Never 3. How often do you have six or more drinks on one occasion?: Never Total Score: 0 DAVID-7 AMB Questionnaire DAVID-7 Date DAVID - 7 assessed: 10/14/24 Feeling nervous, anxious, or on edge: 0 = Not at all Not being able to stop or control worryin = Not at all Worrying too much about different things: 0 = Not at all Trouble relaxin = Not at all Being so restless that it is hard to sit still: 0 = Not at all Becoming easily annoyed or irritable: 0 = Not at all Feeling afraid as if something awful might happen: 0 = Not at all Total DAVID-7 score (0-4 normal; 5-9 mild; 10-14 moderate; 15-21 severe): 0 Source: Developed by Drs. Naif Loyd, Kristen Rob, Almas Roberto and colleagues, with an educational suzy from [employer]. Physical exam (Primary Care) Vital Signs: Last Vital Signs Pulse 73 01/22/25 14:24 BP 130/72 01/22/25 14:24 Pulse Ox 98 01/22/25 14:24 Oxygen Delivery Method Room Air 01/22/25 14:24 BMI result Body Mass Index 30.4 Tobacco/Smoking Status: Tobacco use Status Tobacco use date assessed 10/14/24 01/22/25 14:30 Patient Tobacco Use Status Former Tobacco user 01/22/25 14:30 Tobacco use type Cigarette 01/22/25 14:30 e-Cigarette/Vaping Use Never Used 01/22/25 14:30 PHQ-9: PHQ-9 Score PHQ-9: Total score 0 01/22/25 14:51 Thrive Assessment: Date of Thrive Assessment Date Thrive assessed 10/14/24 01/22/25 14:30 Currently or been in a relationship where the following occur: No concerns reported Const Other: R eye ptotic General: alert; No acute distress Eyes Conjunctivae: conjunctivae normal Resp Auscultation: clear to auscultation bilaterally Cardio Rate: regular rate Rhythm: regular rhythm GI Inspection: Yes normal to inspection Extrem General: Yes normal to inspection and No edema Coding Level of Care Code Est Pt Level 4 (27747) Complex EM visit Add On G2211 Diagnoses Mixed hyperlipidemia E78.2 Hyperlipidemia type: mixed hyperlipidemia Essential hypertension I10 Hypertension type: essential hypertension Hypothyroidism, unspecified type E03.9 Hypothyroidism type: unspecified H/O ischemic right MCA stroke Z86.73 Myasthenia gravis G70.00 Assessment & Plan Assessment & Plan (1) HLD (hyperlipidemia): Code(s): E78.5 - Hyperlipidemia, unspecified Category: Medical Qualifiers: Hyperlipidemia type: mixed hyperlipidemia Qualified Code(s): E78.2 - Mixed hyperlipidemia Plan: Avoid fried foods, chicken skin, eggs, butter margarine, pastries and meat. Be it pork or beef they have a lot of cholesterol patient on atorvastatin LDL goal of less than 70 (2) HTN (hypertension): Code(s): I10 - Essential (primary) hypertension Category: Medical Qualifiers: Hypertension type: essential hypertension Qualified Code(s): I10 - Essential (primary) hypertension Plan: Continue with blood pressure medication. Decrease salt intake and exercise patient on lisinopril (3) Hypothyroidism: Code(s): E03.9 - Hypothyroidism, unspecified Category: Medical Qualifiers: Hypothyroidism type: unspecified Qualified Code(s): E03.9 - Hypothyroidism, unspecified Plan: Continue with thyroid medication but will need retesting (4) H/O ischemic right MCA stroke: Comment: 03/2019 Code(s): Z86.73 - Personal history of transient ischemic attack (TIA), and cerebral infarction without residual deficits Category: Medical (5) Myasthenia gravis: Code(s): G70.00 - Myasthenia gravis without (acute) exacerbation Category: Medical Plan: Patient is on pyridostigmine Plan History of Present Illness The patient is a 64-year-old male presenting for a follow-up visit to address multiple chronic conditions and preventative care. The patient has a history of obesity, with a recent weight gain of 7 pounds noted. He has been diagnosed with hypothyroidism, hypertension, and hypercholesterolemia. His last blood work in September showed normal blood count and electrolytes, stable renal function, but a mildly elevated blood sugar at 108 mg/dL and elevated TSH levels. The patient experienced a cerebrovascular accident (CVA) in March 2019, for which he is on anticoagulation therapy with apixaban, prescribed by his neurologist. He is also on atorvastatin for cholesterol management, with a goal LDL of less than 70 mg/dL, and lisinopril for blood pressure control. The patient has a history of myasthenia gravis and is currently taking pyridostigmine and prednisone as part of his treatment regimen. He underwent a bone density test in April 2024, which revealed osteopenia. Preventative care measures include a scheduled colonoscopy for 2025 and discussions about the shingles vaccine, which is available at pharmacies. Health Maintenance - Colonoscopy scheduled for 2025 - Discussion about shingles vaccine availability at pharmacies Social History Review of Systems Physical Exam - Neurological: Patient was asked to squeeze fingers, move shoulders, and close eyes tightly. Results - Labs: Normal blood count and electrolytes, stable renal function, mildly elevated blood sugar at 108 mg/dL, elevated TSH levels. - Tests: Bone density test in April 2024 showing osteopenia. Plan The patient will continue on atorvastatin with a target LDL of less than 70 mg/dL and lisinopril for hypertension management. Thyroid function will be retested due to previously elevated TSH levels. A repeat cholesterol test is planned to assess current levels, given the increase noted in September. Blood sugar levels will also be monitored, considering the impaired glucose tolerance and the potential impact of steroid use. The patient is advised to maintain hydration, adhere to a healthy diet, and engage in regular exercise to support overall health and manage stroke risk. Preventative care includes a scheduled colonoscopy for 2025 and consideration of the shingles vaccine, which is available at pharmacies. Patient was informed and verbally consented to the use of an ambient scribe for clinic note documentation during this visit. Discussion Notes I discussed with the patient the importance of maintaining a healthy lifestyle, including hydration, diet, and exercise, to manage his chronic conditions and reduce stroke risk. We reviewed the need for repeat cholesterol and thyroid testing, and I emphasized the importance of monitoring blood sugar levels due to impaired glucose tolerance and steroid use. Preventative care measures, including a scheduled colonoscopy and the shingles vaccine, were also discussed. Patient Instructions - Continue taking atorvastatin and lisinopril as prescribed. - Schedule and complete repeat cholesterol and thyroid tests. - Monitor blood sugar levels regularly. - Maintain hydration, follow a healthy diet, and engage in regular exercise. - Consider getting the shingles vaccine from a pharmacy. Orders: Orders Comprehensive [place]. Panel Fast Today I10 - Essential (primary) hypertension Free T4 (Free Thyroxine) Today E03.9 - Hypothyroidism, unspecified Lipid Panel Today E78.2 - Mixed hyperlipidemia Complete Blood Count no Diff Today I10 - Essential (primary) hypertension TSH reflex Free T4 Today E03.9 - Hypothyroidism, unspecified Hemoglobin A1c Today R73.02 - Impaired glucose tolerance (oral)
--- OUTSIDE RECORDS SUMMARY | 2025-01-22 17:31 | XMS_ITS | Clinical Summary ---
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
== END 2025-01-22 16:46 | disposition home or self-care (01) ==
LOC: HO.HMCH 14:22
PROVIDERS: PCP Physician Assistant; Visit Provider Internal Medicine
DX: E78.2 Mixed hyperlipidemia (principal); I10 Essential (primary) hypertension; G70.00 Myasthenia gravis without (acute) exacerbation; E03.9 Hypothyroidism, unspecified; Z86.73 Personal history of transient ischemic attack (TIA), and cerebral infarction without residual deficits

== ENCOUNTER → 2025-01-22 14:21 | Outpatient (BNVA) | payer MEDICARE, SELFPAY | PROVIDERS: PCP Physician Assistant; Visit Provider Internal Medicine | DX: E78.2 Mixed hyperlipidemia (principal); I10 Essential (primary) hypertension; E03.9 Hypothyroidism, unspecified; G70.00 Myasthenia gravis without (acute) exacerbation; R73.02 Impaired glucose tolerance (oral); E66.9 Obesity, unspecified; Z68.30 Body mass index [BMI] 30.0-30.9, adult; Z86.73 Personal history of transient ischemic attack (TIA), and cerebral infarction without residual deficits | CPT/HCPCS: 96127; 99212 ==

== ENCOUNTER 2025-02-12 07:08 | Outpatient (REF) | payer MEDICARE, SELFPAY ==
--- OUTSIDE RECORDS SUMMARY | 2025-02-12 07:10 | XMS_ITS | Clinical Summary ---
Author Organization [facility] Address [address] [place] [address] Care Team Providers Care Bindery Leadperson Name Role Phone Ivette Barton PA-C Primary Care Provider [phone] Source Comments PLEASE NOTE, if this patient [...] 06/18/2015 Overview (09/23/2015): GI 04/28/15. Elias at [facility] Resolved Problems Problem Noted Date Diagnosed [...] 68 09/15/2015 11:19 AM EST Temperature 36.7 C (98 F) 09/15/2015 11:19 AM EST Respiratory Rate 16 09/15/2015 11:19 AM EST Oxygen Saturation - - Inhaled Oxygen Concentration - - Weight 80.9 kg (178 lb 6.4 oz) 09/15/2015 11:19 AM EST Height 170.2 cm (5' 7 ) 09/15/2015 11:19 AM EST Body Mass Index 27.94 09/15/2015 11:19 AM EST Plan of Treatment Not on file Insurance [employer] Care Teams Bindery Leadperson Relationship Specialty Start Date End Date Ivette Barton PA-C [address] [place] [address] PCP - General 09/24/18
[2025-02-12 07:35] LABS: Hematocrit 41.6 % (42.0-52.0); Hemoglobin 14.3 g/dl (14.0-18.0); Mean Corpuscular HGB Conc 34.4 g/dl (31.0-36.0); Mean Corpuscular Hemoglobin 28.2 pg (27.0-33.0); Mean Corpuscular Volume 82.1 fL (80.0-98.0); NRBC Abs Auto 0.000 X10*3/uL (0.0-0.012); NRBC Pct Auto 0.0 /100WBC (0.0-0.2); Platelet Count 250 X10*3/uL (160-400); Red Blood Count 5.07 X10*6/uL (4.60-5.80); White Blood Count 7.9 X10*3/uL (4.8-10.8)
[2025-02-12 07:43] LABS: Hemoglobin A1C 180.2551 umol/L; Total Hemoglobin (HGBA1C) 3722.0551 umol/L
[2025-02-12 08:10] LABS: Alanine Aminotransferase 48 U/L (0-40); Albumin Level 4.4 g/dL (3.5-5.0); Alkaline Phosphatase 75 U/L (39-117); Anion Gap 12 (12-20); Aspartate Amino Transferase 28 U/L (5-37); Blood Urea Nitrogen 32 mg/dL (9-16); Calcium 9.3 mg/dL (8.4-10.2); Carbon Dioxide 26 mmol/L (22-29); Chloride 105 mmol/L (96-108); Cholesterol 131 mg/dL (<200); Estimated Glomerular Filt Rate 55; HDL Cholesterol 54 mg/dL (>40); Potassium 4.8 mmol/L (3.3-5.1); Sodium 138 mmol/L (135-145); Total Protein 7.5 g/dL (6.5-8.0); Triglycerides 45 mg/dL (<150)
[2025-02-12 08:33] LABS: Free T4 (Free Thyroxine) 0.76 ng/dL (0.71-1.85)
== END 2025-02-12 07:09 | disposition home or self-care (01) ==
LOC: HO.LAB 07:08
PROVIDERS: PCP Internal Medicine; Visit Provider Internal Medicine
DX: E03.9 Hypothyroidism, unspecified (principal); E78.2 Mixed hyperlipidemia; I10 Essential (primary) hypertension; R73.02 Impaired glucose tolerance (oral)
CPT/HCPCS: 36415; 80053; 80061; 83036; 84439; 84443; 85027

== ENCOUNTER 2025-05-12 10:35 | Outpatient (AMB) | payer MEDICARE, SELFPAY ==
--- NOTE | 2025-05-12 10:45 | MHC.PC.OV ---
Vital Signs 05/12/25 10:47 Height 5 ft 8 in Weight 198 lb 4 oz BMI 30.1 BP 130/68 Blood Pressure Location Lt brachial Position Sitting Pulse 83 Pulse Source Pulse Oximeter Temp 97.1 F Temp Source Temporal Artery Scan Pulse Oximetry (%) 97 Oxygen Delivery Method Room Air Intake Visit Reasons: f/u HTN/ HLD Intake Note: Patient is here to follow up on HTN, HLD. Ornamental Machine Operator Required: Yes Ornamental Machine Operator Language: Senior Counsel Name: José Miguel ([id number]) Information Interpreted: non-clinical & clinical Road Mender: Not Required per policy Accompanied by: Self / Same As Patient Allergies No Known Allergies Allergy (Verified 05/12/25 10:57) Medication List - Last Reconciled 05/12/25 by Ruiz Smiley PA-C apixaban (Eliquis) 5 mg PO BID aspirin 81 mg PO DAILY 90 days atorvastatin 80 mg PO DAILY 90 days ketorolac 0.5% drps ophthalmic (eye) levothyroxine 100 mcg PO DAILY lisinopril 10 mg PO DAILY prednisolone acetate 1% drps ophthalmic (eye) pyridostigmine bromide 60 mg PO QID Tobacco use date assessed: 05/12/25 Fall risk assessment: No Falls in past year Last assessed Fall Risk: 05/12/25 Dental Screening Dental Screen Date: 10/14/24 HPI f/u HTN/ HLD HPI Details Patient is a 64-year-old Occitan-speaking male here today for follow-up visit Patient has a past medical history significant for hyperlipidemia, hypertension, hypothyroidism and a CVA, type 2 diabetes, ocular myasthenia gravis. CVA: Did have a CVA years ago to his MCA continues on Eliquis, antilipid medication and aspirin. Now followed by Neurology at [facility]. Of note patient interested in getting a mens locker room attendant at home to help him with activities of daily living secondary to his weakness and visual issues from his stroke. Most recent LDL acceptable below 70 .. New onset type 2 diabetes: Todays A1c up at 7.2 from 6.6 . We did discuss diabetic diet and he is now interested in starting medication metformin to help reduce his sugar. Will follow up in 4 months to evaluate an A1c. .. Ocular myasthenia gravis: Patient continues on Mestinon 60 mg 4 times a day and prednisone 5 mg daily with improvement of his left eye ptosis and diplopia. . HTN: Blood pressure acceptable today in office. Will continue him on his current dose of lisinopril 10 mg. Laboratory Tests 10/14/24 02/12/25 08:35 07:19 RBC 5.07 Hgb 14.3 Fasting Glucose 108 H 151 H Hemoglobin A1c % 6.6 H TSH 4.36 H 2.56 PFSH Medical History Cataract, left eye Arthritis of knee Hand arthritis Hyperlipidemia HTN (hypertension) Hypothyroidism FCI current use of anticoagulant H/O ischemic right MCA stroke Acquired hyperbilirubinemia Surgical History Hx of colonoscopy No pertinent past surgical history Family History Father No problems noted. Mother No problems noted. 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 Cognitive needs: No Hearing needs: No Vision needs: Yes Questionnaire Thrive Questionnaire Date Thrive assessed: 01/22/25 I am a: Patient What is your living situation today?: I have a steady place to live Within the past 12 months, did the food you bought not last and you didn't have the money to get more?: Never true Within the past 12 months, did you worry whether your food would run out before you got money to buy more?: Never true Do you have trouble paying for medicines?: No Do you have trouble getting transportation to medical appointments?: No Do you have trouble paying your heating and electricity bill?: No Do you have trouble taking care of your child, family member or friend?: No Do you have trouble with day-to-day activities such as bathing, preparing meals, shopping, managing finances, etc.?: No Are you currently unemployed and looking for a job?: No Are you interested in more education?: Yes Please select the resources that you would like help with: None Currently or been in a relationship where the following occur: No concerns reported THRIVE Score: 0 DAVID-7 AMB Questionnaire DAVID-7 Date DAVID - 7 assessed: 10/14/24 Source: Developed by Drs. Naif Loyd, Kristen Rob, Almas Roberto and colleagues, with an educational suzy from [employer]. Review of Systems Const Denies headache(s) Eyes Denies loss of vision ENT Denies vertigo, Denies dizziness, Denies headache(s) and Denies sore throat Card Denies chest pain, Denies leg edema and Denies lightheadedness Resp Denies cough, Denies hemoptysis and Denies wheezing GI Denies abdominal pain, Denies melena, Denies constipation, Denies diarrhea and Denies vomiting Denies dysuria, Denies urinary frequency and Denies urinary urgency Musc Denies arthralgias, Denies joint swelling, Denies numbness and Denies tingling Neuro Denies Abnormal speech present, Denies behavioral changes, Denies vertigo, Denies dizziness, Denies headache(s), Denies loss of vision, Denies memory loss, Denies numbness and Denies tingling Psych Denies anxiety, Denies behavioral changes, Denies depression, Denies memory loss and Denies panic attacks Lazaro/Lymph Denies easy bleeding and Denies easy bruising Aller/Immun Denies wheezing Physical exam (Primary Care) Vital Signs: Last Vital Signs Temp 97.1 F 05/12/25 10:47 Pulse 83 05/12/25 10:47 BP 130/68 05/12/25 10:47 Pulse Ox 97 05/12/25 10:47 Oxygen Delivery Method Room Air 05/12/25 10:47 BMI result Body Mass Index 30.1 Tobacco/Smoking Status: Tobacco use Status Tobacco use date assessed 05/12/25 05/12/25 10:56 Patient Tobacco Use Status Former Tobacco user 05/12/25 10:56 Tobacco use type Cigarette 05/12/25 10:56 e-Cigarette/Vaping Use Never Used 05/12/25 10:56 Thrive Assessment: Date of Thrive Assessment Date Thrive assessed 01/22/25 05/12/25 10:56 Currently or been in a relationship where the following occur: No concerns reported Const General: healthy appearing, no acute distress, alert and awake Nutritional Appearance: well nourished Orientation/consciousness: oriented to person, oriented to place and oriented to time HENMT Ears: TM's normal bilaterally General nose exam: Normal nasal mucous membranes and turbinates present Eyes Conjunctivae: conjunctivae normal Sclerae: sclerae normal Pupils: Equal, round and reactive pupils present Neck Neck: Yes no lymphadenopathy and Yes no JVD Thyroid: Thyroid normal Carotids: no bruits Resp Effort & Inspection: normal respiratory effort and not tachypneic Auscultation: no crackles, no rales, no rhonchi and no wheezes Cardio Rate: regular rate Rhythm: regular rhythm Heart sounds: no murmurs and normal S1 and S2 GI Palpation (GI): Soft to palpation, nontender, no hepatomegaly and no splenomegaly Auscultation: normal bowel sounds Skin General skin exam: no rashes or lesions noted and dry skin Neuro General: oriented to person, oriented to place and oriented to time Cranial nerves: Yes Equal, round and reactive pupils present Speech: No Abnormal speech present Gait exam (Neuro): Normal gait present Motor exam (neuro): no tremor noted Extrem Right upper extremity: full ROM Left upper extremity: full ROM Right lower extremity: full ROM; no edema Left lower extremity: full ROM; no edema Psych Mental Status: mental status grossly normal Speech and movement: Normal speech and movement present Affect: normal affect Attitude: cooperative Thought process: Normal thought process present Office Procedures Flu Questionnaire Does the patient have a severe egg allergy?: No Does the patient have severe life threatening allergies?: No Does the patient have a fever or illness today?: No Has the patient ever had Guillain-Mesa Syndrome?: No Has the patient ever had any past reaction to a flu shot?: No Results AMB Hemoglobin A1c AMB Hemoglobin A1c 7.2 % Last Edit by ALEXIS Saldivar on 05/12/25 11:01 Immunizations Fluarix [id number] (PF) 45 mcg (15 mcg x 3)/0.5 mL IM syringe Performing Provider: Ruiz Smiley PA-C [place] [facility] [place] [facility] Administered by: ALEXIS Aguillon on 05/12/25 11:20 Dose Route Admin Location Dispensed Lot Number Expiration Date [facility] Dietary Aide 0.5 mL IM Right Deltoid 0.5 mL [id number] 01/26/26 [id number] [employer] VIS Given Date VIS Provided VIS Publication Date 05/12/25 Single Vaccine 24 Eligibility Eligibility Date Funding Source Not [facility] Eligible 05/12/25 Private Results Reviewed Results Reviewed: Laboratory Last Values Hgb A1c (Clinic) 7.2 % (4.0-6.0) H 05/12/25 10:45 Coding Level of Care Code Est Pt Level 4 (37347) Diagnoses Type 2 diabetes mellitus with hyperglycemia, without long-term current use of insulin E11.65 Diabetes mellitus usp insulin use: without intermediate frame tender use Myasthenia gravis G70.00 H/O ischemic right MCA stroke Z86.73 Mixed hyperlipidemia E78.2 Hyperlipidemia type: mixed hyperlipidemia Essential hypertension I10 Hypertension type: essential hypertension Hypothyroidism, unspecified type E03.9 Hypothyroidism type: unspecified Class 1 obesity E66.811 Assessment & Plan Assessment & Plan (1) Type 2 diabetes mellitus with hyperglycemia: Code(s): E11.65 - Type 2 diabetes mellitus with hyperglycemia Category: Medical Qualifiers: Diabetes mellitus usp insulin use: without usp use Qualified Code(s): E11.65 - Type 2 diabetes mellitus with hyperglycemia Plan: Most recent A1c is 7.2. Will start metformin 500 daily to help reduce his sugar. Goal A1c is to be below 7.0. (2) Myasthenia gravis: Code(s): G70.00 - Myasthenia gravis without (acute) exacerbation Category: Medical Plan: Patient continues to follow Neurology. He reports he is consistent with taking his medication He is asking for a home MEDICAL OFFICE PROFESSIONAL INSTRUCTOR to help him with activities daily living due to his lack of vision and some weakness. (3) H/O ischemic right MCA stroke: Comment: 03/2019 Code(s): Z86.73 - Personal history of transient ischemic attack (TIA), and cerebral infarction without residual deficits Category: Medical Plan: As per HPI patient did experience a stroke in 2019. Continues on high dose statin therapy and Eliquis 5 mg b.i.d.. He denies any overt signs of bleeding. Blood pressure today in office acceptable. (4) HLD (hyperlipidemia): Code(s): E78.5 - Hyperlipidemia, unspecified Category: Medical Qualifiers: Hyperlipidemia type: mixed hyperlipidemia Qualified Code(s): E78.2 - Mixed hyperlipidemia Plan: As above patient continues on high dose statin therapy. He will get fasting lipid panel done before next appointment. Goal LDL is to be below 100 (5) HTN (hypertension): Code(s): I10 - Essential (primary) hypertension Category: Medical Qualifiers: Hypertension type: essential hypertension Qualified Code(s): I10 - Essential (primary) hypertension Plan: Patient's blood pressure acceptable today in office. Continues on lisinopril 10 mg daily with good effect. Goal blood pressures to remain below 130/90 (6) Hypothyroidism: Code(s): E03.9 - Hypothyroidism, unspecified Category: Medical Qualifiers: Hypothyroidism type: unspecified Qualified Code(s): E03.9 - Hypothyroidism, unspecified Plan: As per HPI patient continues with levothyroxine 100 mcg. Most recent TSH slightly high . Will recheck his TSH to assure normal. (7) Class 1 obesity: Code(s): E66.811 - Obesity, class 1 Category: Medical Plan: Patient does understand his BMI is over 30 will work on being more physically active and adapting to better eating habits to reduce his weight Orders: Orders AMB Hemoglobin A1c Today E11.65 - Type 2 diabetes mellitus with hyperglycemia Complete Blood Count no Diff Today E11.65 - Type 2 diabetes mellitus with hyperglycemia Comprehensive [place]. Panel Fast Today E11.65 - Type 2 diabetes mellitus with hyperglycemia TSH reflex Free T4 Today E03.9 - Hypothyroidism, unspecified Prostate Specific Antigen Scr Today I10 - Essential (primary) hypertension, Z12.5 - Encounter for screening for malignant neoplasm of prostate Influenza [id number] Immunization Today Z23 - Encounter for immunization Lipid Panel Today E78.2 - Mixed hyperlipidemia Microalbumin, Random (w Creat) Today I10 - Essential (primary) hypertension Medications: Refilled aspirin 81 mg PO DAILY 90 tabs 1RF 90 days I10 - Essential (primary) hypertension Patient Instructions: Goal: A1c to be below 7.0, LDL to be preferable to be below 70 Barriers: Vision, Adherence to physical activity and healthy eating habits
[2025-05-12 10:47] VITALS: BP 130/68; PULSE 83; TEMP 36.2; O2SAT 97; BMI 30.1
--- OUTSIDE RECORDS SUMMARY | 2025-05-12 12:29 | XMS_ITS | Clinical Summary ---
Author Organization [facility] ity Address [address] [place] [address] Care Team Providers Care Transport Aide Name Role Phone Unavailable Primary Care Provider Unavailabl e Social History Tobacco Use Types Packs/Day Years Used Date Smoking Tobacco: Never Assessed Sex and Gender Information Value Date Recorded Sex Assigned at Not on file Legal Sex Male 4:54 AM EST Gender Identity Not on file Sexual Orientation Not on file Plan of Treatment Health Maintenance Due Date Last Done Comments Colorectal Cancer Screening: Colonoscopy 1958 DTaP,Tdap,and Td Vaccines (1 - Tdap) 1977 Pneumococcal Vaccine: 50+ Ye ars (1 of 1 - PCV) 2008 Zoster Vaccines (1 of 2) 2008 Abdominal Aortic Aneurysm (A AA) Screen 08/28/2023 Cholesterol Screening (Lipid Panel) 08/28/2023 Falls Risk Assessment 08/28/2023 Hepatitis C Screening 08/28/2023 Social Influencers of Health Screening 08/28/2023 Depression Screening 07/30/2024 COVID-19 Vaccine (1 - 2023-2 5 season) 2025 Influenza Vaccine (#1) 2025 05/22/2023 RSV Immunization Adult Patie nts (1 - [...] Documents on File Type Date Recorded 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
--- OUTSIDE RECORDS SUMMARY | 2025-05-12 12:29 | XMS_ITS | Clinical Summary ---
Author Organization [facility] Address [address] [place] [address] Care Team Providers Care Integrated Circuits Inspector Name Role Phone Ivette Barton PA-C Primary Care Provider Source Comments PLEASE NOTE, if this patient [...] 06/18/2015 Overview (09/23/2015): GI 04/28/15. Elias at [facility] Resolved Problems Problem Noted Date Diagnosed [...] Plan of Treatment Not on file Insurance [employer] Care Teams Integrated Circuits Inspector Relationship Specialty Start Date End Date Ivette Barton PA-C [address] [place] [address] PCP - General 09/24/18
== END 2025-05-12 11:49 | disposition home or self-care (01) ==
LOC: HO.HMCH 10:36
PROVIDERS: PCP Physician Assistant; Visit Provider Physician Assistant
DX: E11.65 Type 2 diabetes mellitus with hyperglycemia (principal); G70.00 Myasthenia gravis without (acute) exacerbation; Z86.73 Personal history of transient ischemic attack (TIA), and cerebral infarction without residual deficits; E78.2 Mixed hyperlipidemia; I10 Essential (primary) hypertension; E03.9 Hypothyroidism, unspecified; E66.811 Obesity, class 1; Z23 Encounter for immunization

== ENCOUNTER → 2025-05-12 10:35 | Outpatient (BNVA) | payer MEDICARE, SELFPAY | PROVIDERS: PCP Physician Assistant; Visit Provider Physician Assistant | DX: I10 Essential (primary) hypertension (principal); E11.9 Type 2 diabetes mellitus without complications; E03.9 Hypothyroidism, unspecified; G70.00 Myasthenia gravis without (acute) exacerbation; E11.65 Type 2 diabetes mellitus with hyperglycemia; E78.2 Mixed hyperlipidemia; E66.811 Obesity, class 1; Z23 Encounter for immunization; Z68.30 Body mass index [BMI] 30.0-30.9, adult; Z86.73 Personal history of transient ischemic attack (TIA), and cerebral infarction without residual deficits; Z79.01 Long term (current) use of anticoagulants | CPT/HCPCS: 83036; 90471; 90656; 99212 ==